=== PATIENT | female | born 1975 | race Caucasian/White ===

== ENCOUNTER → 2022-09-26 10:42 | Outpatient (CLI) | payer BC, SELFPAY ==
--- NOTE | ~2022-09-26 | MM_ITS ---
EXAMINATION: MM screening kevin BI w bria HISTORY: Screening TECHNIQUE: Craniocaudal and mediolateral oblique 3-D tomosynthesis images were obtained and synthetic 2-D images were generated. CAD analysis was submitted and interpreted. COMPARISON: Comparison to multiple prior studies sequentially, with oldest reviewed study dated 01/10. BREAST PARENCHYMAL COMPOSITION: Breast composed of scattered areas of fibroglandular density FINDINGS: There is a new mass in the upper outer quadrant of the right breast. The left breast is sta ble without evidence for malignancy. IMPRESSION: 1. New partially obscured mass upper outer quadrant of the right breast. 2. Additional mammographic views and possible breast ultrasound are recommended. BI-RADS Category 0: Incomplete: Needs additional imaging evaluation. Reviewed, dictated and finalized at location A. INSTALLER IMPRESSION: 1. New partially obscured mass upper outer quadrant of the right breast. 2. Additional mammographic views and possible breast ultrasound are recommended . BI-RADS Category 0: Incomplete: Needs additional imaging evaluation.
== END ==
PROVIDERS: PCP Obstetrics & Gynecology; Visit Provider Obstetrics & Gynecology
DX: Z12.31 Encounter for screening mammogram for malignant neoplasm of breast (principal); N63.11 Unspecified lump in the right breast, upper outer quadrant
CPT/HCPCS: 77063; 77067

== ENCOUNTER 2022-10-19 12:24 | Outpatient (CLI) | payer BC, SELFPAY ==
--- NOTE | ~2022-10-19 | MMUS_ITS ---
EXAMINATION: MM diagnostic kevin RT w bria, US breast RT limited HISTORY: New partially obscured mass reported in upper outer quadrant of right breast on September 26, 2022 screening mammogram TECHNIQUE: Additional 3-D tomosynthesis images of the right breast were performed and synthetic 2-D i mages were generated. CAD analysis was submitted and interpreted. High resolution upper outer quadran t and lower outer quadrant right breast ultrasound was performed. COMPARISON: September 26, 2022 bilateral screening mammogram FINDINGS: MAMMOGRAPHIC FINDINGS: A partially obscured approximately 7 mm mass is noted in the posterior mid to upper outer right breas t. There is heterogeneously dense stroma of the breast which may obscure masses. ULTRASOUND: There are 4 cysts identified: 10:00 8 cm from nipple: 4.5 x 9 mm cyst 10:00 11 cm from nipple: 2.7 x 5.7 mm cyst 9:30 9 cm from nipple: 6.6 x 9.5 mm cyst 9 37 cm from nipple: 2.3 x 4.10 m cyst No suspicious mass or shadowing is detected in the subareolar area or upper outer or lower quadrants IMPRESSION: 1. Benign findings 2. Routine annual mammographic screening is recommended BI-RADS Category 2: Benign finding(s). Reviewed, dictated and finalized at location A. WASHER MACHINE IMPRESSION: 1. Benign findings 2. Routine annual mammographic screening is recommended BI-RADS Category 2: Benign finding(s).
== END 2022-10-19 12:25 | disposition home or self-care (01) ==
LOC: ANHIMG 12:27
PROVIDERS: PCP Family Medicine; Visit Provider Obstetrics & Gynecology
DX: R92.8 Other abnormal and inconclusive findings on diagnostic imaging of breast (principal); N60.11 Diffuse cystic mastopathy of right breast
CPT/HCPCS: 76642; 77061; 77065; G0279

== ENCOUNTER 2023-11-15 09:16 | Outpatient (CLI) | payer BC, SELFPAY ==
--- NOTE | ~2023-11-15 | MM_ITS ---
EXAMINATION: MM screening kevin BI w bria HISTORY: Screening TECHNIQUE: Craniocaudal and mediolateral oblique 3-D tomosynthesis images were obtained and synthetic 2-D images were generated. CAD analysis was submitted and interpreted. COMPARISON: Comparison to multiple prior studies sequentially, with oldest reviewed study dated 05/14. BREAST PARENCHYMAL COMPOSITION: Dense: The breasts are heterogeneously dense, which may obscure small masses FINDINGS: There is no evidence of suspicious mass, calcification, or architectural distortion to sugg est malignancy in either breast. There has been no suspicious interval change. IMPRESSION: 1. No mammographic evidence of malignancy. 2. Recommend routine screening mammography in one year. BI-RADS Category 1: Negative Reviewed, dictated and finalized at location A.
== END 2023-11-15 09:17 | disposition home or self-care (01) ==
LOC: ANHIMG 09:21
PROVIDERS: PCP Family Medicine; Visit Provider Obstetrics & Gynecology
DX: Z12.31 Encounter for screening mammogram for malignant neoplasm of breast (principal)
CPT/HCPCS: 77063; 77067

== ENCOUNTER 2024-11-26 09:39 | Outpatient (CLI) | payer BC, SELFPAY ==
--- NOTE | ~2024-11-26 | MM_ITS ---
EXAMINATION: MM screening kevin BI w bria HISTORY: Screening TECHNIQUE: Craniocaudal and mediolateral oblique 3-D tomosynthesis images were obtained and synthetic 2-D images were generated. CAD analysis was submitted and interpreted. COMPARISON: Comparison to multiple prior studies sequentially, with oldest reviewed study dated 06/26. BREAST PARENCHYMAL COMPOSITION: Not dense: There are scattered areas of fibroglandular density. FINDINGS: There are developing asymmetries in the upper outer quadrant of the right breast, posterior third upper central aspect of the left breast, posterior third. IMPRESSION: 1. Developing bilateral breast asymmetries. 2. Additional mammographic views and possible breast ultrasound are recommended. BI-RADS Category 0: Incomplete: Needs additional imaging evaluation. Reviewed, dictated and finalized at location A. IMPRESSION: 1. Developing bilateral breast asymmetries. 2. Additional mammographic views and possible breast ultrasound are recommended . BI-RADS Category 0: Incomplete: Needs additional imaging evaluation.
--- OUTSIDE RECORDS SUMMARY | 2024-11-26 10:07 | XMS_ITS ---
Author Organization [facility] Address [address] [place] [address] [address] [place] [address] Care Team Providers Care Apartment Leasing Specialist Name Role Phone Asim, Goran Unavailable [phone] Medications Medication SIG (Take, Route, Frequency, Duration) Notes Start Date End Date Status HYDROcodone-Acetamino phen 5-325 MG one tablet Oral every 8 hours for 30 days As needed DO NOT FILL UNTIL 11/25/24 11/19/2024 Active Encounters Encounter Location Date Provider Diagnosis [facility] [address] [facility] [address] [place] [address] 11/19/2024 Goran Dailey Plan Of Treatment Medication Medication Name Sig Start Date Stop Date Notes HYDROcodone-Acetaminophen 5-325 MG one tablet Oral every 8 hours for 30 days 11/19/2024 DO NOT FILL UNTIL 11/25/24 Next Appt Details Provider Name:Nanci house, 12/17/2024 10:00:00 AM, [id number] [place] [address], [address], [place], [address], Progress Notes * Ann STEIN LDOB:[birth year] (49 yo F)Acc No.[id number]:11/19/2024 Patient: Ann POLANCO :1975 A ge:49 Y S ex:Female Address:[address] [facility] [facility] [address], [place], [address] * Refills Refill HYDROcodone-Acetaminophen Tablet, 5-325 MG, Oral, 90, one tablet, every 8 hours, 30 days, Refills=0 * true * Date: Generated for Tanya medina/William/Raina on: 0 11/26/2024 10:07 AM CDT
--- OUTSIDE RECORDS SUMMARY | 2024-11-26 10:07 | XMS_ITS ---
Author Organization [facility] Address [address] [place] [address] [address] [place] [address] Care Team Providers Care Deck Worker Name Role Phone Asim, Goran Unavailable [phone] Medications Medication SIG (Take, Route, Frequency, Duration) Notes Start Date End Date Status HYDROcodone-Acetamino phen 5-325 MG one tablet Oral every 8 hours for 30 days As needed DO NOT FILL UNTIL 10/26/24 10/22/2024 Active Encounters Encounter Location Date Provider Diagnosis [facility] [address] [facility] [address] [place] [address] 10/22/2024 Goran Dailey Plan Of Treatment Medication Medication Name Sig Start Date Stop Date Notes HYDROcodone-Acetaminophen 5-325 MG one tablet Oral every 8 hours for 30 days 10/22/2024 DO NOT FILL UNTIL 10/26/24 Next Appt Details Provider Name:Nanci house, 12/17/2024 10:00:00 AM, [id number] [place] [address], [address], [place], [address], Progress Notes * Ann STEIN LDOB:[birth year] (49 yo F)Acc No.[id number]:10/22/2024 Patient: Ann POLANCO :1975 A ge:49 Y S ex:Female Address:[address], [place], [address] * Refills Refill HYDROcodone-Acetaminophen Tablet, 5-325 MG, Oral, 90, one tablet, every 8 hours, 30 days, Refills=0 * true * Date: Generated for Tanya medina/William/Raina on: 0 11/26/2024 10:07 AM CDT
--- OUTSIDE RECORDS SUMMARY | 2024-11-26 10:07 | XMS_ITS ---
Author Organization [facility] Address [address] [facility] [address] [place] [address] Care Team Providers Care Arbor End Mainspring Former Name Role Phone Tl LEACHNanci Unavailable Allergies No Known Allergies REASON FOR VISIT meds- dr AHN, Telemedicine visit for medication renewal, c/o low back pain, left forearm, elbow pain, stiffness. Medications Medication SIG (Take, Route, Frequency, Duration) Notes Start Date End Date Status Methocarbamol 750 MG one tablet Oral twice daily for 30 days As needed Active levETIRAcetam 1000 MG TAKE 2 TABLETS (2,000MG ) BY MOUTH TWICE A DAY Oral for 90 Days Active HYDROcodone-Acetaminoph en 5-325 MG one tablet Oral every 8 hours for 30 days As needed DO NOT FILL UNTIL 10/26/24 10/22/2024 Active Naloxone HCl 4 MG/0.1ML as directed Nasally once for 30 days 1 spray in nostril for opioid emergency. call 911. may repeat in other nostril after 2-3 minutes if needed. 11/19/2024 Active Triveen-Duo DHA Acti ve Social History Tobacco Use: Social History Observation Description Date Details (start date - stop date) Never Smoker NA - NA Tobacco Control (Standard) Question Answer Notes Tobacco use: Nonsmoker Vital Signs Height 5 ft 10 in in 11/19/2024 Weight 160 lbs 11/19/2024 BMI 22.96 kg/m2 11/19/2024 Height-cm 177.8 cm 11/19/2024 Weight-kg 72.58 kg 11/19/2024 Encounters Encounter Location Date Provider Diagnosis [facility] [address] [place] [address] [address] [place] [address] 11/19/2024 Nanci Boothe Lumbar pain M54.50 ; Malignant neoplasm of cervix uteri, unspecified C53.9 ; Acquired absence of both cervix and uterus Z90.710 ; Other terminal operations supervisor (current) drug therapy Z79.899 ; Leg length discrepancy M21.70 ; Lumbar spondylosis M47.816 and 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 Assessments Encounter Date Diagnosis (ICD Code) Assessment Notes Treatment Notes Treatment Clinical Notes Section Notes 11/19/2024 Lumbar pain (ICD-10 - M54.50) Prescription for controlled substance sent to supervising physician for renewal 11/19/2024 Malignant neoplasm of cervix uteri, unspecified (ICD-10 - C53.9) 11/19/2024 Acquired absence of both cervix and uterus (ICD-10 - Z90.710) 11/19/2024 Other fdc (current) drug therapy (ICD-10 - Z79.899) 11/19/2024 Leg length discrepancy (ICD-10 - M21.70) 11/19/2024 Lumbar spondylosis (ICD-10 - M47.816) 11/19/2024 Displacement of intervertebral disc of lumbar spine without radiculopathy (ICD-10 - M51.26) Plan Of Treatment Medication Medication Name Sig Start Date Stop Date Notes Naloxone HCl 4 MG/0.1ML as directed Nasa lly once for 30 days 11/19/2024 Treatment Notes Assessment Notes Lumbar pain Prescription for con trolled substance sent to supervising physician for renewal Next Appt Details Follow Up: 4 Weeks, Reason: Provider Name:Nanci house, 12/17/2024 10:00:00 AM, [address] [place] [address], [address], [place], [address], Progress Notes * Ann STEIN LDOB:[birth year] (49 yo F)Acc No.[id number]:11/19/2024 Patient: Ann POLANCO Appointment Provider: LIONEL Oro :1975 A ge:49 Y S ex:Female Date:11/19/2024 Address:[address], [place], [id number] Subjective: * Chief Complaints: * 1 . meds- dr AHN. 2. Telemedicine visit for medication renewal. 3. C/o low back pain, left forearm, elbow pain, stiffness.. * HPI: * Established Patient: Ann Stein gives consent to virtual telemedicine visit today and verbalizes understanding that insurance will be billed accordingly. The visit was conducted through [employer] which is HIPAA compliant. Time was spent conducting visit, renewing and discussing medications, answering questions, reviewing chart and updating medical history, reviewing current treatment options, future treatments and scheduled procedures, pertinent lab vwork, and discussing follow up. Time spent with patient: 11 minutes. patient was at work. * Pain Management:: Ann Stein has an appointment today for medication renewal. She has a history of low back pain secondary to facet arthropathy. She has a history of cervical cancer with hysterectomy in 2019. She had left elbow/tendon repair with Dr Hamlin in 2019. Her left forearm is tight but better with TPI last visit and stretching. She will schedule xray next visit and may need MRI. She rates VAS 6/10. Her pain is axial, central low back. She is currently not in physical therapy.? She has no difficulty with sleep.In the past lumbar medial branch nerve blocks have been discussed. Leg length checked and is shorst 8mm right. We discussed lift. She will have lumbar scan updated. We discuss B SIJ, possible psoas block, lift, MFR/PT, MBNB lumbar. She was renewed on hydrocodone 5/325 mg 1 to 2 tablets a day as needed. She is on Robaxin-750 milligrams as needed. She has no somnolence and does not exhibit aberrant drug behavior. She is on Keppra for epilepsy. She has liquid lorazepam to use if she has a seizure. UDS and PDMP are monitored. She will bring log blood work from PCP. PDMP checked on 11/19/24: Patients last refill 10/26/24. Discussed with patient about using Narcan as opioid overdose reversal treatment in an Emergency. Patient understood well and agreed. Naloxone rx sent 11/19/24. Yearly Controlled Substances/ Pain Agreement and Consent for Chronic Opioid Therapy is discussed and signed . The patient is counseled on the benefits and risks of long-term opioid treatment (e.g., dependence, tolerance, addiction, sedation, impaired motor skill and coordination and thus increased risks for falls and operating a motor vehicle or heavy machinery, and other adverse effects such as opioid-induced constipation), and alternative medications. I also reviewed the clinic's Opioid Treatment Policy and agreement with the patient, including provisions that address the following:o Expectation of a single prescribero Periodic urine drug screeningo Expectation of no concurrent use of medications not prescribed for the patient (eg, benzodiazepines, other opioids, THC, stimulants, alcohol)o No early refillso Periodic review of PDMP queries Date of Last Urine Drug Screen: 09/03/23, was compliant with medication use . The patient expresses an understanding of the risks associated with chronic opioid treatment and consents to treatment. UDS due next month. * ROS: G eneral/Constitutional: Denies Change in appetite, Chills, Fatigue, Fever or Lightheadedness. ENT: Denies Tinnitus or Dysphagia. Ophthalmologic: Denies Blurred vision or change in vision. Neurological: denies gait abnormality, balance difficulty, dizziness, or loss of strength Psychological: denies depressed mood or change in mood Skin: denies skin rash . * Medical History: C ervical cancer, Seizure disorder. * Surgical History: c ervical cancer/hysterectomy 2019, L elbow tendon repair Dr Hamlin 2019. * Hospitalization/Major Diagno stic Procedure: n o hospitalization since last visit . * Family History: F ather: alive 71 yrs. M other: 71 yrs, breast cancer. * Social History: T obacco Use: T obacco Control (Standard) T obacco use: N onsmoker * Established Patient: S moking D o you smoke? N o Form Scores C ESD-R PMQ-R GPCOG Date 0 04/23/2024 C ESD-R Score 0 C ESD-R Risk L ow Risk (0 - 16) P MQ-R Score 8 P MQ-R Risk L ow Risk (0 - 34) G PCOG Score 9 G PCOG Risk N o Risk (9) C ESD-R PMQ-R GPCOG Testing Interval L ow Risk (every 6 months) C ESD-R PMQ-R GPCOG Next Test Due 0 10/23/2024 S OAPP Date 0 10/22/2024 S OAPP-R Score 0 S OAPP-R Risk L ow Risk (0 -9) S OAPP-R Testing Interval L ow Risk (every 6 months) C OMM Date 0 10/22/2024 C OMM Score 0 C OMM Risk N egative (< 9) * COMM: C OMM 1 . In the past 30 days, how often have you had trouble with thinking clearly or had memory problems? 0 - Never 2 . In the past 30 days, how often do people complain that you are not completing necessary tasks? (i.e., doing things that need to be done, such as going to class, work or appointments) 0 - Never 3 . In the past 30 days, how often have you had to go to someone other than your prescribing physician to get sufficient pain relief from medications? (i.e., another doctor, the Emergency Room, friends, street sources) 0 - Never 4 . In the past 30 days, how often have you taken your medications differently from how they are prescribed? 0 - Never 5 . In the past 30 days, how often have you seriously thought about hurting yourself? 0 - Never 6 . In the past 30 days, how much of your time was spent thinking about opioid medications (having enough, taking them, dosing schedule, etc.)??0- Never 7 . In the past 30 days, how often have you been in an argument? 0 - Never 8 . In the past 30 days, how often have you had trouble controlling your anger (e.g., road rage, screaming, etc.)? 0 - Never 9 . In the past 30 days, how often have you needed to take pain medications belonging to someone else? 0 - Never 1 0. In the past 30 days, how often have you been worried about how you're handling your medications? 0 - Never 1 1. In the past 30 days, how often have others been worried about how you're handling your medications? 0 - Never 1 2. In the past 30 days, how often have you had to make an emergency phone call or show up at the clinic without an appointment? 0 - Never 1 3. In the past 30 days, how often have you gotten angry with people? 0 - Never 1 4. In the past 30 days, how often have you had to take more of your medication than prescribed? 0 - Never 1 5. In the past 30 days, how often have you borrowed pain medication from someone else? 0 - Never 1 6. In the past 30 days, how often have you used your pain medicine for symptoms other than for pain (e.g., to help you sleep, improve your mood, or relieve stress)? 0 - Never 1 7. In the past 30 days, how often have you had to visit the Emergency Room? 0 - Never * SOAPP-R: S OAPP-R 1 . How often do you have mood swings? 0 - Never 2 . How often have you felt a need for higher doses of medication to treat your pain? 0 - Never 3 . How often have you felt impatient with your doctors? 0 - Never 4 . How often have you felt that things are just too overwhelming that you can't handle them? 0 - Never 5 . How often is there tension in the home??0- Never 6 . How often have you counted pain pills to see how many are remaining? 0 - Never 7 . How often have you been concerned that people will sanitation worker cleaning equipment you for taking pain medication? 0 - Never 8 . How often do you feel bored? 0 - Never 9 . How often have you taken more pain medication than you were supposed to? 0 - Never 1 0. How often have you worried about being left alone? 0 - Never 1 1. How often have you felt a craving for medication? 0 - Never 1 2. How often have others expressed concern over your use of medication? 0 - Never 1 3. How often have any of your close friends had a problem with alcohol or drugs? 0 - Never 1 4. How often have others told you that you had a bad temper? 0 - Never 1 5. How often have you felt consumed by the need to get pain medication? 0 - Never 1 6. How often have you run out of pain medication early? 0 - Never 1 7. How often have others kept you from getting what you deserve? 0 - Never 1 8. How often, in your lifetime, have you had legal problems or been arrested? 0 - Never 1 9. How often have you attended an AA or NA meeting? 0 - Never 2 0. How often have you been in an argument that was so out of control that someone got hurt? 0 - Never 2 1. How often have you been sexually abused??0- Never 2 2. How often have others suggested that you have a drug or alcohol problem? 0 - Never 2 3. How often have you had to borrow pain medications from your family or friends? 0 - Never 2 4. How often have you been treated for an alcohol or drug problem? 0 - Never * Medications: T tico Sauceda-Alf DHA , Taking levETIRAcetam 1000 MG Tablet TAKE 2 TABLETS (2,000MG ) BY MOUTH TWICE A DAY Oral , Taking Methocarbamol 750 MG Tablet one tablet Oral twice daily As needed, Taking HYDROcodone-Acetaminophen 5-325 MG Tablet one tablet Oral every 8 hours As needed, Notes to Pharmacist: DO NOT FILL UNTIL 10/26/24 * Allergies: N .K.D.A. Objective: * Vitals: H t: 5 ft 10 in, Wt:160lbs, Pain scale:61-10, BMI:22.96Index, Ht-cm: 177.8 cm, Wt- k.58 kg, Body Surface Area: 1.89. * Physical Examination: P sarah is alert and oriented x3 in NAD. Questions are answered appropriately. No slurred speech. Respirations are non-labored. Patient sits comfortably during virtual visit today. Assessment: * Assessment: 1. L umbar pain - M54.50 (Primary) 2 . M alignant neoplasm of cervix uteri, unspecified - C53.9 3 . A cquired absence of both cervix and uterus - Z90.710? 4. O ther terminal operations supervisor (current) drug therapy - Z79.899 5 . L eg length discrepancy - M21.70 6 . L umbar spondylosis - M47.816 7 . D isplacement of intervertebral disc of lumbar spine without radiculopathy - M51.26 ? Plan: * Treatment: * Follow Up: 4 Weeks * Billing Information: * Visit Code: 93833 Office Visit, Est Pt., Level 3. * Procedure Codes: * Electronic signature of LIONEL Holt PA-C on 11/26/2024 at 10:07 AM CDT Sign off status: Pending * Appointment Provider: LIONEL Oro Date: 0 11/19/2024 Generated for Printing/Faxing/eTransmitting on: 0 11/26/2024 10:07 AM CDT History and Physical Notes * HPI (History of Present Illness) Category Sub-Category Detail Notes Category Not es *Pain Management: Ann Stein has an appointment today for medication renewal. She has a history of low back pain secondary to facet arthropathy. She has a history of cervical cancer with hysterectomy in 2019. She had left elbow/tendon repair with Dr Hamlin in 2019. Her left forearm is tight but better with TPI last visit and stretching. She will schedule xray next visit and may need MRI. She rates VAS 6/10. Her pain is axial, central low back. She is currently not in physical therapy. She has no difficulty with sleep.In the past lumbar medial branch nerve blocks have been discussed. Leg length checked and is shorst 8mm right. We discussed lift. She will have lumbar scan updated. We discuss B SIJ, possible psoas block, lift, MFR/PT, MBNB lumbar. She was renewed on hydrocodone 5/325 mg 1 to 2 tablets a day as needed. She is on Robaxin-750 milligrams as needed. She has no somnolence and does not exhibit aberrant drug behavior. She is on Keppra for epilepsy. She has liquid lorazepam to use if she has a seizure. UDS and PDMP are monitored. She will bring log blood work from PCP. PDMP checked on 11/19/24: Patients last refill 10/26/24. Discussed with patient about using Narcan as opioid overdose reversal treatment in an Emergency. Patient understood well and agreed. Naloxone rx sent 11/19/24. Yearly Controlled Substances/ Pain Agreement and Consent for Chronic Opioid Therapy is discussed and signed . The patient is counseled on the benefits and risks of long-term opioid treatment (e.g., dependence, tolerance, addiction, sedation, impaired motor skill and coordination and thus increased risks for falls and operating a motor vehicle or heavy machinery, and other adverse effects such as opioid-induced constipation), and alternative medications. I also reviewed the clinic's Opioid Treatment Policy and agreement with the patient, including provisions that address the following:o Expectation of a single prescribero Periodic urine drug screeningo Expectation of no concurrent use of medications not prescribed for the patient (eg, benzodiazepines, other opioids, THC, stimulants, alcohol)o No early refillso Periodic review of PDMP queries Date of Last Urine Drug Screen: 09/03/23, was compliant with medication use . The patient expresses an understanding of the risks associated with chronic opioid treatment and consents to treatment. UDS due next month. *Established Patient Ann Stein gives consent to virtual telemedicine visit today and verbalizes understanding that insurance will be billed accordingly. The visit was conducted through [employer] which is HIPAA compliant. Time was spent conducting visit, renewing and discussing medications, answering questions, reviewing chart and updating medical history, reviewing current treatment options, future treatments and scheduled procedures, pertinent lab vwork, and discussing follow up. Time spent with patient: 11 minutes. patient was at work. Physical Examination Category Sub-Category Detail Notes Section Note s Patient is aler t and oriented x3 in NAD. Questions are answered appropriately. No slurred speech. Respirations are non-labored. Patient sits comfortably during virtual visit today.
--- OUTSIDE RECORDS SUMMARY | 2024-11-26 10:07 | XMS_ITS | Patient Health Record ---
Author Organization 1 OF Sandra weaver [facility] Address [address] [place] [address] Care Team Providers Care Liability Claims Representative Name Role Phone Tulio Shukla Primary Care Provider [place] gertrudis Dana France Unavailable [phone] Allergies No Known Allergies Reason For Referral No Information Medications Medication SIG (Take, Route, Frequency, Duration) Notes Start Date End Date Status Keppra 250 MG 1 tablet Orally ever y 12 hrs for 30 day(s) 12/16/2023 Active Methocarbamol 750 MG Oral for 30 Days Active HYDROcodone-Acetaminophen 5-325 MG TAKE 1 TABLET BY MOUTH EVERY 12 HOURS NEEDED Oral for 30 Days Active Social History Tobacco Use: Social History Observation Description Date Details (start date - stop date) Former Smoker NA - NA Tobacco Control (Standard) Question Answer Notes Tobacco use: Former smoker How long has it been since you last smoked? 5-10 years Vital Signs Height 70 in 07/13/2024 Weight 165 lbs 07/13/2024 BMI 23.67 kg/m2 07/13/2024 Encounters Encounter Location Date Provider Diagnosis 1 OF Sandra Lazo [facility] [address] [place] [address] 12/16/2023 Dana France Ganglion cyst of foot M67.479 and Right foot pain M79.671 1 OF Sandra Lazo [facility] [address] [place] [address] 07/13/2024 Dana France Ganglion cyst of foot M67.479 and Right foot pain M79.671 Assessments Encounter Date Diagnosis (ICD Code) Assessment Notes Treatment Notes Treatment Clinical Notes Section Notes 12/16/2023 Right foot pain (ICD-10 - M79.671) 12/16/2023 Ganglion cyst of foot (ICD-10 - M67.479) Patient visit today included a review of medical history, review of systems, physical exam and discussion of exam findings, and discussion of diagnoses and treatment options. I explained that she has a ganglion cyst on the right foot. I discussed conservative options of trying an aspiration. I explained that there are no guarantees that the lesion will drain. I discussed that ganglion cysts tend to have a high recurrence rate. I discussed that these cysts are primarily benign. I discussed that surgical removal can be performed if the cyst continues to recur and is significantly painful. The patient was agreeable to an aspiration today. Antibiotic ointment and a Band-Aid were applied. She'll follow up as needed. 07/13/2024 Ganglion cyst of foot (ICD-10 - M67.479) Evaluation today included a review of medical history, review of systems, discussion of exam findings, and review of diagnoses and treatment options. I again discussed that ganglion cysts can have a high recurrence rate. I discussed the option of trying another aspiration with a injection of a small amount of corticosteroid medication. I also discussed that if it continues to recur, sometimes the cyst can be surgically removed. She is not interested in having a surgical removal of the cyst. She would like to try the aspiration with application of corticosteroid medication. I did discuss the risk of developing potential thinning of the skin along the cyst. She understands this. A compressive dressing was applied after the aspiration. She was advised to apply antibiotic ointment and Band-Aid for the next 1-2 days. She will call with any issues. 07/13/2024 Right foot pain (ICD-10 - M79.671) Plan Of Treatment No Information Insurance Providers Payer Name Payer Address Payer Phone Subscriber Number Group Number Insured Name Patient Relationship to Insured Coverage Start Date Coverage End Date [facility] [address] [place] [address] [id number] Ann Stein Self - patient is the insured Medical (General) History Medical History History ICD Code cervical cancer, seizures,epilepsy Surgical History Surgery Date(Month/Year) hysterectomy due to cervical cancer
--- OUTSIDE RECORDS SUMMARY | 2024-11-26 10:07 | XMS_ITS | Patient Health Record ---
Author Organization [facility] Address [address] [place] [address] Care Team Providers Care Tree Expert Name Role Phone Mikayla Dailey Unavailable [phone] Nanci Boothe PA-C Unavailable [phone] Goran Dailey Unavailable [phone] Allergies No Known Allergies Results Component Value Reference Range Notes CT Lumbar WO Reviewed date:07/01/2024 09:20:46 AM Interpretation: Performing Lab: Notes/Report: Original Report EXAM: CT LUMBAR SPINE W/O CONTRAST, 06/29/2024 COMPARISON: None HISTORY: Low back pain TECHNIQUE: Noncontrast CT imaging was performed of the lumbar spine with reconstructed sagittal 2-D images using the standard protocol. The radiation exposure as measured by the dose length product (DLP) is 608mGy-cm. CT dose lowering technique was utilized for this exam. FINDINGS: There is normal alignment and curvature of the lumbar spine. There is no fracture or subluxation. There is no significant lumbar disc herniation, canal, or foraminal stenosis from T12-L1 through L3-4. L4-5: There is a shallow broad-based left disc protrusion minimally flattening the ventral thecal sac. No canal stenosis seen. No foraminal narrowing. L5-S1: There is disc space narrowing seen with shallow left disc protrusion but no canal or foraminal narrowing. IMPRESSION: Minor L4-5 and L5-S1 disc protrusions. No canal or foraminal narrowing. . Read by: Telma Lazcano M.D. Reviewed and Electronically Signed by: Telma Lazcano M.D. - Original Report EXAM: CT LUMBAR SPIN E W/O CONTRAST, 06/29/2024 COMPARISON: None HISTORY: Low back pain TECHNIQUE: Noncontra st CT imaging was performed of the lumbar spine with reconstructed s agittal 2-D images using the standard protocol. The radiation exposu re as measured by the dose length product (DLP) is 608mGy-cm. CT dose l owering technique was utilized for this exam. FINDINGS: There is normal alig nment and curvature of the lumbar spine. There is no fracture or subluxation. There is no signific ant lumbar disc herniation, canal, or foraminal stenosis from T12-L1 through L3-4. L4-5: There is a sha llow broad-based left disc protrusion minimally flattening the ventr al thecal sac. No canal stenosis seen. No foraminal narrowing. L5-S1: There is disc space narrowing seen with shallow left disc protrusion but no ca nal or foraminal narrowing. IMPRESSION: Minor L4-5 and L5-S1 disc protrusions. No canal or foraminal narrowing. . Read by: Telma Lazcano M.D. Reviewed and Electro nically Signed by: Telma Lazcano M.D. Reason For Referral No Information Medications Medication [...] DO NOT FILL UNTIL 11/25/24 11/19/2024 Active Naloxone HCl 4 MG/0.1ML as directed [...] (Standard) Question Answer Notes Tobacco use: Nonsmoker Section Notes: We have evaluated the patien t using PMQ-R, CESD-R and GPCOG assessments. Based on data collected from the PMQ-R, we are evaluating the risk for abuse, misuse and diversion. Furthermore, we are screening the patient for depression using the CESD-R assessment. Lastly, we are utilizing GPCOG to ensure that the current treatment plan is not impairing cognition. Per assessments today the patient has low risk for depression, low risk for opioid misuse, abuse, and no cognitive impairment. She is low risk on all testing today. Problems Problem Type SNOMED Code ICD Code Onset Dates Problem Status W/U Status Risk Notes Problem Malignant neoplasm of cervix uteri (853097621) Malignant neoplasm of cervix uteri, unspecified (C53.9) Active confirmed Problem Long-term current use of drug therapy (535404221) Other skilled nursing (current) drug therapy (Z79.899) Active confirmed Problem Hysterectomy (335906898) Acquired absence of both cervix and uterus (Z90.710) Active confirmed Problem Lumbar spondylosis (217830556) Lumbar spondylosis (M47.816) Active confirmed Problem Lumbar pain (901848663) Lumbar pain (M54.50) Active confirmed Problem Leg length discrepancy (038362584) Leg length discrepancy (M21.70) Active confirmed Problem Displacement of lumbar intervertebral disc without myelopathy (33745145) 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) Active confirmed Vital Signs Heart Rate 75 /min 10/22/2024 106 Height-cm 177.8 cm 11/19/2024 Blood pressure diastolic 71 mm Hg 10/22/2024 106 Weight-kg 72.58 kg 11/19/2024 Height 5 ft 10 in in 11/19/2024 Blood pressure systolic 106 mm Hg 10/22/2024 106 Weight 160 lbs 11/19/2024 BMI 22.96 kg/m2 11/19/2024 Encounters Encounter Location Date Provider Diagnosis [facility] [address] [place] [address] [address] [place] [address] 12/10/2023 Nanci Marstall [facility] [address] [place] [address] [address] [place] [address] 01/21/2024 Nanci Marstall [facility] [address] [place] [address] [address] [place] [address] 02/25/[address] [facility] [address] [place] [address] [address] [place] [address] 11/19/2024 Nanci Marstall Lumbar pain M54.50 ; Malignant neoplasm of cervix uteri, unspecified C53.9 ; Acquired absence of both cervix and uterus Z90.710 ; Other skilled nursing (current) drug therapy Z79.899 ; Leg length discrepancy M21.70 ; Lumbar spondylosis M47.816 and 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 [facility] [address] [place] [address] [address] [place] [address] 03/26/2024 Nanci Marstall Lumbar pain M54.50 ; Malignant neoplasm of cervix uteri, unspecified C53.9 ; Acquired absence of both cervix and uterus Z90.710 and Other skilled nursing (current) drug therapy Z79.899 [facility] [address] [place] [address] [address] [place] [address] 04/23/2024 Nanci Marstall Lumbar pain M54.50 ; Malignant neoplasm of cervix uteri, unspecified C53.9 ; Acquired absence of both cervix and uterus Z90.710 ; Other 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 Z79.899 and Screening for substance abuse Z13.89 [facility] [address] [place] [address] [address] [place] [address] 05/21/2024 Nanci Marstall Lumbar pain M54.50 ; Malignant neoplasm of cervix uteri, unspecified C53.9 ; Acquired absence of both cervix and uterus Z90.710 and Other 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 Z79.899 [facility] [address] [place] [address] [address] [place] [address] 06/18/2024 Nanci Marstall Lumbar pain M54.50 ; Leg length discrepancy M21.70 ; Malignant neoplasm of cervix uteri, unspecified C53.9 ; Acquired absence of both cervix and uterus Z90.710 and Other 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 Z79.899 [facility] [address] [place] [address] [address] [place] [address] 07/16/2024 Goran Asim Lumbar pain M54.50 ; Malignant neoplasm of cervix uteri, unspecified C53.9 ; Acquired absence of both cervix and uterus Z90.710 ; Other skilled nursing (current) drug therapy Z79.899 ; Leg length discrepancy M21.70 ; Lumbar spine pain M54.50 ; Lumbar spondylosis M47.816 ; 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 ; Seizure disorder G40.909 and Hx of cervical cancer Z85.41 [facility] [address] [place] [address] [address] [place] [address] 08/13/2024 Nanci Marstall Lumbar pain M54.50 ; Lumbar spondylosis M47.816 ; 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 ; Leg length discrepancy M21.70 ; Malignant neoplasm of cervix uteri, unspecified C53.9 ; Acquired absence of both cervix and uterus Z90.710 and 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 Z79.899 [facility] [address] [place] [address] [address] [place] [address] 09/17/2024 Nanci Marstall Lumbar pain M54.50 ; Leg length discrepancy M21.70 ; Lumbar spondylosis M47.816 ; 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 ; Malignant neoplasm of cervix uteri, unspecified C53.9 ; Acquired absence of both cervix and uterus Z90.710 and Other 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 Z79.899 [facility] [address] [place] [address] [address] [place] [address] 10/22/2024 Nanci Marstall Lumbar pain M54.50 ; Malignant neoplasm of cervix uteri, unspecified C53.9 ; Acquired absence of both cervix and uterus Z90.710 ; Other skilled nursing (current) drug therapy Z79.899 ; Leg length discrepancy M21.70 ; Lumbar spondylosis M47.816 and 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 [facility] [address] [place] [address] 03/26/2024 Goran Asim [facility] [address] [place] [address] 03/26/2024 Goran Asim [facility] [address] [place] [address] [address] [place] [address] 04/23/2024 Goran Asim [facility] [address] [place] [address] 05/21/2024 Goran Asim [facility] [address] [facility] [address] [place] [address] 06/18/2024 Goran Asim [facility] [address] [place] [address] 07/27/2024 Goran Asim [facility] [address] [place] [address] 08/13/2024 Goran Asim [facility] [address] [place] [address] 09/17/2024 Goran Asim [facility] [address] [place] [address] [address] [place] [address] 10/22/2024 Goran Asim [facility] [address] [place] [address] 11/19/2024 Goran Asim Assessments Encounter Date Diagnosis (ICD Code) Assessment Notes Treatment Notes Treatment Clinical Notes Section Notes 03/26/2024 Malignant neoplasm of cervix uteri, unspecified (ICD-10 - C53.9) hydrocodone rx sent to supervising physician for renewal 03/26/2024 Lumbar pain (ICD-10 - M54.50) 04/23/2024 Malignant neoplasm of cervix uteri, unspecified (ICD-10 - C53.9) 04/23/2024 Lumbar pain (ICD-10 - M54.50) hydrocodone rx sent to supervising physician for renewal discuss [place], Butrans or Tylenol w/ codeine next visit cannot use tramadol with seizure history schedule lumbar xrays 05/21/2024 Lumbar pain (ICD-10 - M54.50) hydrocodone rx sent to supervising physician for renewal 06/18/2024 Lumbar pain (ICD-10 - M54.50) hydrocodone rx sent to supervising physician for renewal 06/18/2024 Leg length discrepancy (ICD-10 - M21.70) 07/16/2024 Lumbar pain (ICD-10 - M54.50) 08/13/2024 Lumbar spondylosis (ICD-10 - M47.816) 08/13/2024 Lumbar pain (ICD-10 - M54.50) Prescription for controlled substance sent to supervising physician for renewal 09/17/2024 Lumbar pain (ICD-10 - M54.50) Prescription for controlled substance sent to supervising physician for renewal 09/17/2024 Leg length discrepancy (ICD-10 - M21.70) 10/22/2024 Lumbar pain (ICD-10 - M54.50) Prescription for controlled substance sent to supervising physician for renewal 11/19/2024 Lumbar pain (ICD-10 - M54.50) Prescription for controlled substance sent to supervising physician for renewal 09/17/2024 Lumbar spondylosis (ICD-10 - M47.816) 11/19/2024 Malignant neoplasm of cervix uteri, unspecified (ICD-10 - C53.9) 10/22/2024 Malignant neoplasm of cervix uteri, unspecified (ICD-10 - C53.9) 08/13/2024 Displacement of intervertebral disc of lumbar spine without radiculopathy (ICD-10 - M51.26) 07/16/2024 Malignant neoplasm of cervix uteri, unspecified (ICD-10 - C53.9) 06/18/2024 Malignant neoplasm of cervix uteri, unspecified (ICD-10 - C53.9) 05/21/2024 Malignant neoplasm of cervix uteri, unspecified (ICD-10 - C53.9) 03/26/2024 Acquired absence of both cervix and uterus (ICD-10 - Z90.710) 04/23/2024 Acquired absence of both cervix and uterus (ICD-10 - Z90.710) 04/23/2024 Other skilled nursing (current) drug therapy (ICD-10 - Z79.899) 03/26/2024 Other 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 (ICD-10 - Z79.899) 08/13/2024 Leg length discrepancy (ICD-10 - M21.70) 05/21/2024 Acquired absence of both cervix and uterus (ICD-10 - Z90.710) 06/18/2024 Acquired absence of both cervix and uterus (ICD-10 - Z90.710) 07/16/2024 Acquired absence of both cervix and uterus (ICD-10 - Z90.710) 09/17/2024 Displacement of intervertebral disc of lumbar spine without radiculopathy (ICD-10 - M51.26) 10/22/2024 Acquired absence of both cervix and uterus (ICD-10 - Z90.710) 11/19/2024 Acquired absence of both cervix and uterus (ICD-10 - Z90.710) 11/19/2024 Other 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 (ICD-10 - Z79.899) 10/22/2024 Other 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 (ICD-10 - Z79.899) 08/13/2024 Malignant neoplasm of cervix uteri, unspecified (ICD-10 - C53.9) 09/17/2024 Malignant neoplasm of cervix uteri, unspecified (ICD-10 - C53.9) 04/23/2024 Screening for substance abuse (ICD-10 - Z13.89) 05/21/2024 Other skilled nursing (current) drug therapy (ICD-10 - Z79.899) 06/18/2024 Other 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 (ICD-10 - Z79.899) 07/16/2024 Other 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 (ICD-10 - Z79.899) 08/13/2024 Acquired absence of both cervix and uterus (ICD-10 - Z90.710) 09/17/2024 Acquired absence of both cervix and uterus (ICD-10 - Z90.710) 07/16/2024 Leg length discrepancy (ICD-10 - M21.70) 10/22/2024 Leg length discrepancy (ICD-10 - M21.70) 11/19/2024 Leg length discrepancy (ICD-10 - M21.70) 11/19/2024 Lumbar spondylosis (ICD-10 - M47.816) 10/22/2024 Lumbar spondylosis (ICD-10 - M47.816) 07/16/2024 Lumbar spine pain (ICD-10 - M54.50) 09/17/2024 Other 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 (ICD-10 - Z79.899) 08/13/2024 Other 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 (ICD-10 - Z79.899) 07/16/2024 Lumbar spondylosis (ICD-10 - M47.816) 10/22/2024 Displacement of intervertebral disc of lumbar spine without radiculopathy (ICD-10 - M51.26) 11/19/2024 Displacement of intervertebral disc of lumbar spine without radiculopathy (ICD-10 - M51.26) 07/16/2024 Displacement of intervertebral disc of lumbar spine without radiculopathy (ICD-10 - M51.26) 07/16/2024 Seizure disorder (ICD-10 - G40.909) 07/16/2024 Hx of cervical cancer (ICD-10 - Z85.41) 04/23/2024 Other Learning About How to Have a Healthy Back material was published 05/21/2024 Other Learning About How to Have a Healthy Back material was published 06/18/2024 Other Body Mass Index : Care Instructions material was published, High Blood Pressure: Care Instructions material was published 07/16/2024 Other Body Mass Index: Care Instructions material was published Patient will be refilled on her medication of the hydrocodone 5/325 1 every 8 hours as needed as needed and Robaxin-750 milligrams twice daily as needed as needed. 09/17/2024 Other Learning About How to Have a Healthy Back material was published 10/22/2024 Other Learning About How to Have a Healthy Back material was published Plan Of Treatment Pending Test Test Name Order Date Leg Length 06/18/2024 Next Appt Details Provider Name:Nanci house, 12/17/2024 10:00:00 AM, [address] [place] [address], [address], [address], Insurance Providers Payer Name Payer Address Payer Phone Subscriber Number Group Number Insured Name Patient Relationship to Insured Coverage Start Date Coverage End Date [facility] [address] [place] [address] [id number] Ann Stein Self - patient is the insured 1 Medical (General) History Medical History History ICD Code cervical cancer seizure disorder Surgical History Surgery Date(Month/Year) cervical cancer/hysterectomy 2019 L elbow tendon repair Dr Hamlin 2019 Hospitalization History Reason Date(Month/Year) no hospitalization since last visit
--- OUTSIDE RECORDS SUMMARY | 2024-11-26 10:07 | XMS_ITS | Clinical Summary ---
Author Organization [facility] Address [address] [place] [address] Care Team Providers Care Traffic Signal Repairer Name Role Phone Jose Hernandez MD Primary Care Provider [phone] Allergies No known active allergies Medications hydrocodone-acet aminophen 5-325 MG tablet Take 1 tablet by mouth every 6 (six) hours as needed for Pain. Active methocarbamol 500 MG tablet Take 750 mg by mouth 4 (four) times daily. Active levETIRAcetam 1000 MG tablet Take 1,000 mg by mouth 2 (two) times daily. 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 Gender Identity Not on file Sexual Orientation Not on file Last Filed Vital Signs Vital Sign Reading Time Taken Comments Blood Pressure 101/76 11/21/2019 6:36 PM CDT Pulse 88 11/21/2019 6:36 PM CDT Temperature 36.6 C (97.9 F) 11/21/2019 6:36 PM CDT Respiratory Rate 20 11/21/2019 6:36 PM CDT Oxygen Saturation 95% 11/21/2019 6:36 PM CDT Inhaled Oxygen Concentration - - Weight 83.9 kg (185 lb) 11/21/2019 6:36 PM CDT Height 177.8 cm (5' 10 ) 11/21/2019 6:36 PM CDT Body Mass Index 26.54 11/21/2019 6:36 PM CDT Plan of Treatment Health Maintenance Due Date Last Done Comments Cervical Cancer Screening Pa p Smear (Age 30 to 64) Every 3 Years 1975 Colorectal Cancer Screening Colonoscopy (10 Years) 1975 Annual Physical 1978 Hepatitis C 1993 DTaP, Tdap and Td Vaccines ( 1 - Tdap) 1994 Hepatitis B Vaccines (1 of 3 - 19+ 3-dose series) 1994 Cervical Cancer Screening Pa p with HPV Testing (Age 30 to 64) Every 5 Years 2005 Cervical Cancer Screening with HPV 2005 Mammogram Screening 2015 COVID-19 Vaccine (2023-2 5 season) 2024 Meningococcal B Vaccine Aged Out No l onger eligible based on patient's age to complete this topic Meningococcal Vaccine Aged Out No anup reynaldo eligible based on patient's age to complete this topic Pneumococcal Vaccine: Pediat rics (0 to 5 Years) and At-Risk Patients (6 to 64 Years) Aged Out No longer eligible b ased on patient's age to complete this topic RSV Immunizations Under 20 Months Aged Out No longer eligible based on patient's age to complete this topic Care Teams Traffic Signal Repairer Relationship Specialty Start Date End Date Jose Hernandez MD [address] [place] [address] PCP - General [facility]IC[facility] 11/21/19
--- OUTSIDE RECORDS SUMMARY | 2024-11-26 10:08 | XMS_ITS | Continuity of Care Document ---
Author Organization [facility] Address [address] [place] [address] Phone Care Team Providers Care Business Department Chair Name Role Phone Rishabh Poon MD Unavailable Unavailable Advance Directives Directive Yes / No Effective Date File Name No Information Encounters Encounter Description Practice Location Reason(s) For Visit Diagnoses Date Provider Providers Copied on Encounter [facility], [address] [place], [id number], [place] tel:[phone] [facility] No Information Cleve Keating. [address] [place], [place], [id number], [place]. tel:[phone] Family History Family Member Type Diagnosis Age At Onset No Information Payers Payer name Insurance type Covered alliance party ID Authoriza tion(s) No Information Social History Type Description Quantity Date Captured Comments Sex Female Smoking Status No Information Chief Complaint And Reason For Visit No Information Plan Of Treatment Date Type Action Status No Information History Of Present Illness Encounter Date Complaint History Of Prese nt Illness No Information Instructions Date Instruction Additional Infor mation No Information Assessments Type Assessment Date No Information
--- OUTSIDE RECORDS SUMMARY | 2024-11-26 10:08 | XMS_ITS ---
Author Organization 1 OF Sandra weaver [facility] Address [address] [place] [address] Care Team Providers Care Adult Crossing Guard Name Role Phone Tulio Shukla Primary Care Provider Dana Mclean Unavailable [phone] Allergies No Known Allergies REASON FOR VISIT Ganglion Cyst on Rt foot Medications Medication SIG (Take, Route, Frequency, Duration) Notes Start Date End Date Status Methocarbamol 750 MG Oral for 30 Days Active HYDROcodone-Acetaminophen 5-325 MG TAKE 1 TABLET BY MOUTH EVERY 12 HOURS NEEDED Oral for 30 Days Active Keppra 250 MG 1 tablet Orally ever y 12 hrs for 30 day(s) 12/16/2023 Active Social History Tobacco Use: Social History Observation Description Date Details (start date - stop date) Former Smoker NA - NA Tobacco Control (Standard) Question Answer Notes Tobacco use: Former smoker How long has it been since you last smoked? 5-10 years Vital Signs Height 70 in 12/16/2023 Weight 168 lbs 12/16/2023 BMI 24.1 kg/m2 12/16/2023 Encounters Encounter Location Date Provider Diagnosis [facility] OF [facility] [address] [place] [address] 12/16/2023 Dana France Ganglion cyst of foot M67.479 and Right foot pain M79.671 Assessments Encounter Date Diagnosis (ICD Code) Assessment Notes Treatment Notes Treatment Clinical Notes Section Notes 12/16/2023 Ganglion cyst of foot (ICD-10 - [...] were applied. She'll follow up as needed. 12/16/2023 Right foot pain (ICD-10 - M79.671) Plan Of Treatment Treatment Notes Assessment Notes Ganglion cyst of foot Patient visit toda y included a review of medical history, review [...] were applied. She'll follow up as needed. Next Appt Details Follow Up: prn, Reason: Procedure Notes * Category Sub-Category Detail Notes INJECTIONS / ASPIRATION: Cyst aspiration & injec tion: Right foot: The skin along the cyst was prepped with alcohol. Local anesthesia obtained with cold spray. Attempted aspiration of the cystic lesion with a 19-gauge needle. About 1 cc of clear gelatinous fluid was obtained. Antibiotic ointment and a bandage were applied. Patient was advised to monitor for signs of infection. Progress Notes * Jignesh STEINOB: [birth year] (48 yo F)Acc No.[id number]:12/16/2023 Progress Notes Patient: Ann POLANCO Provider: Mariana France DPM :1975 A ge:48 Y S ex:Female Date:12/16/2023 [facility]:[address] [place] [address] Pcp:Tulio Shukla Subjective: * Chief Complaints: * G anglion Cyst on Rt foot * HPI: Venita Charles assisting with visit:: HPI/Rooming: Venita patterson. Briana miller reason for visit:: Pain level: R ight foot:, 09/04. New Patient Evaluation: [age] year old female, referred by Dr Shukla, PTO with chief complaint of a ganglion cyst on the right foot of 2 months duration with sudden onset. She reports that she noticed it pop up one day. She states it is aggravated by prolonged standing/walking.Pt rates the pain as . She states it was not causing pain previously, but it is starting to. Pt reports the only history of a cyst is to the LT armpit when she was 12. Pt admits to a history of trauma to the region around the cyst where she had broken a bone in the foot previously.. * ROS: G ENERAL: NAUSEA, FEVER OR CHILLS d enies, d enies. U NEXPLAINED LOSS OR GAIN OF WEIGHT d enies. U NEXPLAINED FATIGUE OR LACK OF ENERGY d enies. R ECENT FALL d enies. P ERIPHERAL VASCULAR: FATIGUE IN CALF MUSCLE WHILE WALKING d enies. P AIN, SWELLING OR FEELING OF TIGHTNESS IN LEG d enies. F REQUENT OR CHRONIC SWELLING OF LEGS d enies. T OES TURN BLUE, WHITE, PAINFUL WITH COLD TEMPERATURE d enies. N EUROLOGICAL: DIZZINESS, LIGHT HEADED OR FAINTING d enies. W EAKNESS OR PARALYSIS d enies. D IFFICULTY WITH BALANCE d enies. P ERIPHERAL NEUROLOGICAL: BURNING, TINGLING, STINGING SENSATION OF FEET d enies. N UMBNESS OF FOOT / FEET d enies. W EAKNESS OF FOOT / FEET d enies. G ASTROINTESTINAL: ABDOMINAL PAIN d enies. B LOODY STOOL d enies. F REQUENT HEARTBURN d enies. F REQUENT NAUSEA OR VOMITING d enies. S KIN: EXCESSIVE SWEATING OF FEET / HANDS d enies. C HRONIC OR RECURRENT SKIN RASH d enies. N ONHEALING SKIN LESIONS d enies. T ENDENCY TO FORM THICK SCARS (KELOIDS) d enies. M USCULOSKELETAL: LOW BACK PAIN admits. H IP PAIN d enies. K NEE PAIN d enies. S WELLING / STIFFNESS JOINTS OF HANDS / FEET d enies. E NDOCRINE: DELAYED HEALING OF WOUNDS d enies. I NTOLERANCE TO HEAT OR COLD d enies. E XCESSIVE THIRST d enies. F REQUENT URINATION d enies. ? H EMATOLOGY/ONCOLOGY: ANEMIA d enies. B LEED or BRUISE EASILY d enies.?ANTI-COAGULANT USE d enies. * Medical History: * Surgical History: h ysterectomy due to cervical cancer * Hospitalization/Major Diagno stic Procedure: * Family History: Cancer(breast, lung). * Social History: T obacco Use: T obacco Control (Standard) T obacco use: F ormer smoker H ow long has it been since you last smoked??5-10 years D rugs/Alcohol: A lcohol use: Denies current alcohol use. Recreational drugs: Denies All. M iscellaneous: E xercise: Active. 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 * Medications: T akingMethocarbamol 750 MG Tablet Oral Keppra 250 MG Tablet 1 tablet Orally every 12 hrs HYDROcodone-Acetaminophen 5-325 MG Tablet TAKE 1 TABLET BY MOUTH EVERY 12 HOURS NEEDED Oral Taking Methocarbamol 750 MG Tablet Oral Taking Keppra 250 MG Tablet 1 tablet Orally every 12 hrs Taking HYDROcodone-Acetaminophen 5-325 MG Tablet TAKE 1 TABLET BY MOUTH EVERY 12 HOURS NEEDED Oral * Allergies: N .K.D.A.no[Allergies Verified] Objective: * Vitals: W t:168lbs, Wt-k.2 kg, Ht: 70 in, BMI:24.1Index. * Examination: G eneral Examination: Constitutional / Appearance: N o acute distress , Well nourished, Appropriate personal hygiene. Mental status: C ooperative, Oriented to person, place and time, Mood and affect: normal, Judgement and intellect: normal with appropriate response to questions. Shoes today: U gg boots. L ower Extremity VASCULAR: : Pulses: D P and PT pulses, palpable, bilateral. Temperature gradient: w arm from proximal to distal, bilateral. Pedal hair: p resent, bilateral. Capillary refill at distal toes less than 3 seconds, bilateral. L ower Extremity DERM: : Skin: w ell hydrated , no suspicious lesions, bilateral.? L ower Extremity MSK: : Gait Gait unremarkable with normal posture, propulsion and balance. Left lower extremity inspection and palpation: N o palpable masses or nodules noted.. Right lower extremity inspection and palpation: T here is a palpable soft tissue mass noted along the dorsal lateral foot. Mass measures about 1 cm x 1 cm. Mass is soft. No acute pain with palpation around the surrounding soft tissue. No pain with manual muscle strength testing against resistance to all muscle groups.. ? L ower Extremity NEURO: : General sensation appears intact, bilateral. Muscle tone within normal limits, bilateral. ? Assessment: * Assessment: 1. R ight foot pain - M79.671 2 . G anglion cyst of foot - M67.479 (Primary) Plan: * Treatment: * Procedures: I NJECTIONS / ASPIRATION:: Cyst aspiration & injection: R ight foot: The skin along the cyst was prepped with alcohol. Local anesthesia obtained with cold spray. Attempted aspiration of the cystic lesion with a 19- gauge needle. About 1 cc of clear gelatinous fluid was obtained. Antibiotic ointment and a bandage were applied. Patient was advised to monitor for signs of infection.. * Procedure Codes: 2 0612 ASPIRATE/INJ GANGLION CYST, Modifiers: RT * Follow Up: p rn * Images: * Sign off status: Completed true * Provider: Mariana France DPM Date: 0 12/16/2023 Generated for Tanya medina/William/Olgaitting on: 0 11/26/2024 10:08 AM CDT History and Physical Notes * HPI (History of Present Illness) Category Sub-Category Detail Notes Category Not es Primary reason for visit: New Patient Evaluation: 48 year old female, referred by Dr Shukla, PTO with chief complaint of a ganglion cyst on the right foot of 2 months duration with sudden onset. She reports that she noticed it pop up one day. She states it is aggravated by prolonged standing/walking. Pt rates the pain as 1 /10. She states it was not causing pain previously, but it is starting to. Pt reports the only history of a cyst is to the armpit when she was 12. Pt admits to a history of trauma to the region around the cyst where she had broken a bone in the foot previously. Pain level: Right foot:, 09/04 MA assisting with visit: HPI/Rooming: Jackie Examination Category Sub-Category Detail Notes Category Not es General Examination Mental status: Cooperative, Oriented to person, place and time, Mood and affect: normal, Judgement and intellect: normal with appropriate response to questions Shoes today: Ugg boots Constitutional / Appearance: No acute di stress , Well nourished, Appropriate personal hygiene Lower Extremity VASCULAR: Pulses: DP and PT pulse s, palpable, bilateral Temperature gradient: warm from proximal to distal, bilateral Pedal hair: present, bilateral Capillary refill at distal toes less carmelo n 3 seconds, bilateral Lower Extremity NEURO: General sensation appears intac t, bilateral Muscle tone within normal limits , bilateral Lower Extremity MSK: Left lower extremit y inspection and palpation: No palpable masses or nodules noted. Right lower extremity inspec tion and palpation: There is a palpable soft tissue mass not ed along the dorsal lateral foot. Mass measures about 1 cm x 1 cm. Mass is soft. No acute pain with palpation around the surrounding soft tissue. No pain with manual muscle strength testing against resistance to all muscle groups. Gait Gait unremarkable wi th normal posture, propulsion and balance Lower Extremity DERM: Skin: well hydrated , no suspicious lesions, bilateral
--- OUTSIDE RECORDS SUMMARY | 2024-11-26 10:08 | XMS_ITS ---
Author Organization 1 OF Sandra weaver [facility] Address [address] [facility] [address] [place] [address] Care Team Providers Care Production Helper Name Role Phone Tulio Shukla Primary Care Provider [place] gertrudis BrambilaaDana Unavailable [phone] Allergies No Known Allergies REASON FOR VISIT ganglion cyst rt foot Medications Medication SIG (Take, Route, Frequency, Duration) Notes Start Date End Date Status Keppra 250 MG 1 tablet Orally ever y 12 hrs for 30 day(s) 12/16/2023 Active Methocarbamol 750 MG Oral for 30 Days Active HYDROcodone-Acetaminophen 5-325 MG TAKE 1 TABLET BY MOUTH EVERY 12 HOURS NEEDED Oral for 30 Days Active Vital Signs Height 70 in 07/13/2024 Weight 165 lbs 07/13/2024 BMI 23.67 kg/m2 07/13/2024 Encounters Encounter Location Date Provider Diagnosis 1 OF Sandra Lazo [facility] [address] [facility] [address] [place] [address] 07/13/2024 Dana France Ganglion cyst of foot M67.479 and Right foot pain M79.671 Assessments Encounter Date Diagnosis (ICD Code) Assessment Notes Treatment Notes Treatment Clinical Notes Section Notes 07/13/2024 Ganglion cyst of foot (ICD-10 - [...] Notes Assessment Notes Ganglion cyst of foot Evaluation today i ncluded a review of medical history, review of [...] days. She will call with any issues. Next Appt Details Follow Up: prn, Reason: Procedure Notes * Category Sub-Category Detail Notes INJECTIONS / ASPIRATION: Cyst aspiration & injection: Right foot: The skin along the cyst was prepped with alcohol. Local anesthesia obtained with cold spray. Attempted aspiration of the cystic lesion with a 19-gauge needle. About 3 cc of clear gelatinous fluid was obtained via the syringe and with manual compression. An injection of 0.2 cc of dexamethasone phosphate was then injected. Antibiotic ointment and a compressive bandage were applied. Patient was advised to monitor for signs of infection. Progress Notes * Jignesh STEINOB: [birth year] (49 yo F)Acc No.[id number]:07/13/2024 Progress Notes Patient: Ann POLANCO Provider: Mariana France DPM :1975 A ge:49 Y S ex:Female Date:07/13/2024 Address:[address] [place] [address] [address], [place] Pcp:Tulio Shukla Subjective: * Chief Complaints: * G anglion cyst rt foot * HPI: Venita Charles assisting with visit:: HPI/Rooming: Gertrudis miller reason for visit:: Recurrent issue: [age] y/o female RTO c/o recurrent RT ganglion cyst. At the last visit, tx consisted of an aspiration. Today pt reports it came back i n March. She states she only has pain if she is standing too long. She is wondering if it can be drained again today. She states it does not significantly interfere with her activities.. * ROS: * MULTI-SYSTEM REVIEW:: Nausea, fever or chillls d enies. A ny change in medications since last visit? d enies. A ny changes in medical history/hospitalizations? d enies. * Medical History: * Medications: T akingMethocarbamol 750 MG Tablet Oral Keppra 250 MG Tablet 1 tablet Orally every 12 hrs HYDROcodone-Acetaminophen 5-325 MG Tablet TAKE 1 TABLET BY MOUTH EVERY 12 HOURS NEEDED Oral Medication List reviewed and reconciled with the patientTaking Methocarbamol 750 MG Tablet Oral Taking Keppra 250 MG Tablet 1 tablet Orally every 12 hrs Taking HYDROcodone-Acetaminophen 5-325 MG Tablet TAKE 1 TABLET BY MOUTH EVERY 12 HOURS NEEDED Oral Medication List reviewed and reconciled with the patient * Allergies: N .K.D.A.no[Allergies Verified] Objective: * Vitals: W t:165lbs, Wt-k.84 kg, Ht: 70 in, BMI:23.67Index. * Examination: G eneral Examination: Constitutional / Appearance: N o acute distress , Well nourished, Appropriate personal hygiene. Mental status: C ooperative, Oriented to person, place and time, Mood and affect: normal, Judgement and intellect: normal with appropriate response to questions. Shoes today: u gg boots. L ower Extremity VASCULAR: : Pulses: D P and PT pulses, palpable, right. Temperature gradient: w arm from proximal to distal, r ight. Pedal hair: p resent, r ight. Capillary refill at distal toes l ess than 3 seconds, r ight. L ower Extremity DERM: : Skin: w ell hydrated , no suspicious lesions, r ight. L ower Extremity MSK: : Gait Gait unremarkable with normal posture, propulsion and balance. Right lower extremity inspection and palpation: T here is a palpable soft tissue mass noted along the dorsal lateral foot. Mass measures about 1.5 cm x 1 cm. Mass is soft. Mild discomfort with palpation of the mass. N o pain with manual muscle strength testing against resistance to all muscle groups.. L ower Extremity NEURO: : General sensation appears i ntact, r ight. Muscle tone w ithin normal limits, r ight. Assessment: * Assessment: 1. G anglion cyst of foot - M67.479 (Primary) 2 . R ight foot pain - M79.671 Plan: * Treatment: * Procedures: I NJECTIONS / ASPIRATION:: Cyst aspiration & injection: R ight foot: The skin along the cyst was prepped with alcohol. Local anesthesia obtained with cold spray. Attempted aspiration of the cystic lesion with a 19- gauge needle. About 3 cc of clear gelatinous fluid was obtained via the syringe and with manual compression. An injection of 0.2 cc of dexamethasone phosphate was then injected. Antibiotic ointment and a compressive bandage were applied. Patient was advised to monitor for signs of infection.. * Procedure Codes: 2 0612 ASPIRATE/INJ GANGLION CYST, Modifiers: RT * Follow Up: p rn * Images: * ESSOR OF RELIGION Sign off status: Completed true * Provider: Mariana France DPM Date: 09/12/2023 Generated for Tanya medina/William/Olgaitting on: 0 11/26/2024 10:07 AM CDT History and Physical Notes * HPI (History of Present Illness) Category Sub-Category Detail Notes Category Not es Primary reason for visit: Recurrent issue: 49 y/o female RTO c/o recurr ent RT ganglion cyst. At the last visit, tx consisted of an aspiration. Today pt reports it came back in March. She states she only has pain if she is standing too long. She is wondering if it can be drained again today. She states it does not significantly interfere with her activities. MA assisting with visit: HPI/Rooming: Vida Examination Category Sub-Category Detail Notes Category Not es General Examination Mental status: Cooperative, Oriented to person, place and time, Mood and affect: normal, Judgement and intellect: normal with appropriate response to questions Shoes today: ugg boots Constitutional / Appearance: No acute di stress , Well nourished, Appropriate personal hygiene Lower Extremity VASCULAR: Pulses: DP and PT pulse s, palpable, right Temperature gradient: warm from proximal to distal, right Pedal hair: present, right Capillary refill at distal toes less carmelo n 3 seconds, right Lower Extremity NEURO: General sensation appears intac t, right Muscle tone within normal limits , right Lower Extremity MSK: Right lower extremi ty inspection and palpation: There is a palpable soft tissue mass noted along the dorsal lateral foot. Mass measures about 1.5 cm x 1 cm. Mass is soft. Mild discomfort with palpation of the mass. No pain with manual muscle strength testing against resistance to all muscle groups. Gait Gait unremarkable wi th normal posture, propulsion and balance Lower Extremity DERM: Skin: well hydrated , no suspicious lesions, right
--- OUTSIDE RECORDS SUMMARY | 2024-11-26 10:08 | XMS_ITS | Referral Summary ---
Author Organization [facility] Address [address] [place] [address] Care Team Providers Care Cvt Tech Name Role Phone Tulio Shukla MD Primary Care Provider [phone] Encounters Date Type Department Care Team Description 11/17/2024 10:15 AM CDT Office Visit [facility] Primary Care at [address] [address] Tulio Shukla MD 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); JAYE III (cervical intraepithelial neoplasia grade III) with severe dysplasia; Lumbar herniated disc; BMI 28.0-28.9,adult; Subacute cough 11/09/2024 1:49 PM CDT - 11/09/2024 11:59 PM CDT Hospital Encounter [address] [address] Lipid screening Discharge Disposition: Discharge to home or self care 11/09/2024 2:00 PM CDT Lab [facility] Outpatient Lab at [address] [address] Class 1 obesity due to excess calories with body mass index (BMI) of 32.0 to 32.9 in adult (Primary Dx) from Last 3 Months Allergies No known active allergies Medications calcium citrate (CALCITRATE) 950 mg (200 mg elemental) tablet Take 2 tablets (1,900 mg total) by mouth 2 (two) times a day Active cholecalciferol (VITAMIN D-3) 5,000 unit tablet Take 1 tablet (5,000 Units total) by mouth daily Active multivitamin capsule Take 1 capsule by mouth daily Active methocarbamoL (ROBAXIN) 750 mg tablet Take 1 tablet (750 mg total) by mouth nightly Active HYDROcodone-aceta minophen (NORCO) 5-325 mg per tablet TAKE 1 TABLET BY MOUTH EVERY 12 HOURS NEEDED. DO NOT FILL UNTIL 12/12/2022 3 Active ibuprofen (ADVIL,MOTRIN) 800 mg tablet Take 1 tablet (800 mg total) by mouth every 8 (eight) hours as needed for pain (pain) 90 tablet 1 3 Active levETIRAcetam (KEPPRA) 1,000 mg tabletIndications :Generalized idiopathic epilepsy, intractable, without status epilepticus (HCC) TAKE 2 TABLETS (2,000MG ) BY MOUTH TWICE A DAY 360 tablet 3 4 Active LORazepam IntensoL 2 mg/mL concentrated solution TAKE 1 ML(2 MG) BY MOUTH EVERY 6 HOURS NEEDED FOR ANXIETY 30 mL 4 4 Active amoxicillin (AMOXIL) 875 mg tablet Take 1 tablet (875 mg total) by mouth 2 (two) times a day 20 tablet 4 11/18/19 25 Discontinu ed(Therapy completed) Active Problems Problem Noted Date Diagnosed Date BMI 28.0-28.9,adult 11/17/2024 Assessment & Plan (11/17/2024 10:53 AM CDT): As will follow respose. No change and encourage 150min/week aerobic exercise. Subacute cough 11/17/2024 Assessment & Plan (11/17/2024 10:53 AM CDT): COngratulateoin on continued smoking cessation and will follow response. Check CT scan and will montior repsonse. Encounter for screening colonoscopy 05/14/2024 Class 1 obesity due to exces s calories with body mass index (BMI) of 32.0 to 32.9 in adult 10/30/2022 JAYE III (cervical intraepith elial neoplasia grade III) with severe dysplasia 07/27/2020 Assessment & Plan (11/17/2024 10:52 AM CDT): Continues on [employer] and will monitor response. NO change and will follw oresponse. Breaet cancer screening pending. Lumbar herniated disc 07/27/2020 Assessment & Plan (11/17/2024 10:53 AM CDT): COntinues f/u with pain management and will follow repsonse. Generalized idiopathic epile psy, intractable, without status epilepticus 07/01/2017 Partial epilepsy with impairment of consciousnes s 06/24/2013 Assessment & Plan (11/17/2024 10:52 AM CDT): COntinues on Keppra and will montior response. NO breakthrough sypmtomatology on 4000mg/day. Immunizations Immunization Administration Dates Next Due Influenza LAIV (Nasal) 08/26/2021(Deferred: Aidee ent Refused) Influenza, Unspecified 11/17/2024(Deferr ed: Patient Refused),05/19/2024(Deferred: Patient Refused),11/05/2023(Deferred: Patient Refused),05/07/2023(Deferred: Patient Refused),08/26/2022(Deferred: Patient Refused),06/26/2022(Deferred: Patient Refused),10/27/2021(Deferred: Patient Refused),08/26/2020(Deferred: Patient Refused) Td, adsorbed 10/27/2021 Social History Tobacco Use Types Packs/Day Years Used Date Smoking Tobacco: Former Cigarettes Vaping Smokeless Tobacco: Never Tobacco Cessation:Counseling Given: Not Answered Alcohol Use Standard Drinks/Week Comments No 0 (1 standard drink = 0.6 oz pur e alcohol) PHQ-2 Answer Date Recorded PHQ-2 Total Score (If total score is 3 or more points, staff should administer the PHQ-9) 0 11/17/2024 Comments No Sex and Gender Information Value Date Recorded Sex Assigned at Not on file 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 Gender Identity Not on file Sexual Orientation Not on file Last Filed Vital Signs Vital Sign Reading Time Taken Comments Blood Pressure 124/74 11/17/2024 10:27 AM CDT Pulse 78 11/17/2024 10:27 AM CDT Temperature 36.8 C (98.2 F) 11/17/2024 10:27 AM CDT Respiratory Rate 14 12/01/2023 12:27 PM CDT Oxygen Saturation 98% 11/17/2024 10:27 AM CDT Inhaled Oxygen Concentration - - Weight 90.4 kg (199 lb 3.2 oz) 11/17/2024 10:27 AM CDT Height 177.8 cm (5' 10 ) 11/17/2024 10:27 AM CDT Body Mass Index 28.58 11/17/2024 10:27 AM CDT Plan of Treatment Upcoming Encounters Date Type Department Care Team (Late st Contact Info) Description 05/14/2025 8:30 AM CDT Hospital Encounter [address] [address] Minda Dennis MD [address] [place] [address] [place] [address] 05/14/2025 8:30 AM CDT - 05/14/2025 9:00 AM CDT Surgery [address] [address] Minda Dennis MD [address] [place] [address] [place] [id number] COLONOSCOPY Scheduled Procedures Name Priority Associated Diagnoses Date/Ti me COLONOSCOPY Encounter for screening colonoscopy 05/14/2025 8:30 AM CDT Procedures Procedure Name Priority Date/Time Associated Diagnosis Comments EGFR Routine 11/09/2024 1:49 PM CDT Lipid screening DIFFERENTIAL AUTO Routine 11/09/2024 1:4 9 PM CDT Lipid screening LIPID PANEL Routine 11/09/2024 1:49 PM CDT Lipid screening CBC WITH AUTO DIFFERENTIAL Routine 11/09/2024 1:49 PM CDT Lipid screening COMPREHENSIVE METABOLIC PANEL Routine 11/09/2024 1:49 PM CDT Lipid screening HM MAMMOGRAPHY Routine 11/15/2023 from Last 3 Months or Most Recently Relevant to Health Maintenance Results * eGFR (11/09/2024 1:49 PM CDT) eGFR 79 >=60 mL/min/1. 73 m2 Comment: Interpretive Data Reference Interval Normal >/= 90 mL/min/1.73m2 Mildly decreased* 60 - 89 mL/min/1.73m2 Mildly to moderately decreased 45 - 59 mL/min/1.73m2 Moderately to severely decreased 30 - 44 mL/min/1.73m2 Severely decreased 15 - 29 mL/min/1.73m2 Kidney Failure < 15 mL/min/1.73m2 *Relative to young adult level Estimated glomerular filtration rate is determined by the 2020 CKD-EPI equation recommended by the National Kidney Foundation (A Unifying Approach to GFR Estimation: Recommendations of the NKF-ASK Task Force on Reassessing the Inclusion of Race in Diagnosing Kidney Disease, JASN 2020). The CKD-EPI equation should not be used for patients with unstable renal function and has not been validated in children and those over 70. Current interpretive data was last reviewed 2021. Blood 11/09/2024 1:49 PM CDT 11/09/2024 9:53 PM CDT us Tulio Shukla MD LAB BLOOD ORDERABLES Alicia minaya Result [facility] [address] [address] Department [place] [address] * Differential, auto (11/09/2024 1:49 PM CDT) Neutrophil abs 2.6 1.5 - 6.5 K/cumm Imm gran abs 0.0 0.0 - 0.1 K/cumm [facility] Lymphocyte abs 1.9 0.8 - 3.3 K/cumm [facility] Monocyte abs 0.3 0.2 - 0.8 K/cumm [facility] Eosinophil abs 0.1 0.0 - 0.5 K/cumm [facility] Basophil abs 0.0 0.0 - 0.1 K/cumm [facility] Neutrophil pct 52.4 % [facility] Comment: Interpretive Data Percent cell count reference ranges are not reported, since discordance with absolute values may lead to misinterpretation of CBC data. Current Interpretive Data was last revised on 2017. Imm gran pct 0.2 % [facility] Comment: Interpretive Data Percent cell count reference ranges are not reported, since discordance with absolute values may lead to misinterpretation of CBC data. Current Interpretive Data was last revised on 2017. Lymphocyte pct 37.9 % [facility] Comment: Interpretive Data Percent cell count reference ranges are not reported, since discordance with absolute values may lead to misinterpretation of CBC data. Current Interpretive Data was last revised on 2017. Monocyte pct 6.7 % [facility] Comment: Interpretive Data Percent cell count reference ranges are not reported, since discordance with absolute values may lead to misinterpretation of CBC data. Current Interpretive Data was last revised on 2017. Eosinophil pct 2.6 % [facility] Comment: Interpretive Data Percent cell count reference ranges are not reported, since discordance with absolute values may lead to misinterpretation of CBC data. Current Interpretive Data was last revised on 2017. Basophil pct 0.2 % [facility] Comment: Interpretive Data Percent cell count reference ranges are not reported, since discordance with absolute values may lead to misinterpretation of CBC data. Current Interpretive Data was last revised on 2017. Blood 11/09/2024 1:49 PM CDT 11/09/2024 9:49 PM CDT Tulio Shukla MD LAB BLOOD ORDERABLES Alicia l Result [facility] [id number] [address] Department [place] [address] * (ABNORMAL) CBC with auto differential (11/09/2024 1:49 PM CDT) WBC 4.9 3.8 - 9.9 K/cumm Hgb 12.8 11.9 - 15.5 g/dL [facility] Hct 40.4 35.6 - 45.5 % [facility] Plt 206 150 - 400 K/cumm [facility] MPV 10.1 9.1 - 12.3 fL [facility] RBC 4.52 3.90 - 5.20 M/cumm [facility] MCV 89.4 81.3 - 96.4 fL [facility] MCH 28.3 27.1 - 33.3 pg [facility] MCHC 31.7(L) 32.3 - 35.7 g/dL [facility] RDW CV 13.1 11.1 - 14.9 % [facility] RDW SD 42.6 35.7 - 48.1 fL [facility] NRBC abs 0.00 0.00 - 0.01 K/cumm [facility] Blood 11/09/2024 1:49 PM CDT 11/09/2024 9:49 PM CDT us Tulio Shukal MD LAB BLOOD ORDERABLES Alicia l Result [facility] [address] [address] Department [place] [address] * (ABNORMAL) Lipid panel (11/09/2024 1:49 PM CDT) Cholesterol 222(H) 30 - 199 mg/dL Comment: Interpretive Data Ages < or = 19 years Acceptable: <170 mg/dL Borderline high: 170-199 mg/dL High: >or= 200 mg/dL Ages > or = 20 years Desirable: <200 mg/dL Borderline high: 200-239 mg/dL High: >or= 240 mg/dL Literature References: 1. Expert Panel on Integrated Guidelines for Cardiovascular Health and Risk Reduction in Children and Adolescents. Pediatrics 2011;128:S213 2. NCEP Expert Panel. Circulation 2004;110:227 Current Interpretive Data was last revised on 2018. Triglycerides 203(H) <=149 mg/dL [facility] Comment: Interpretive Data Ages < or = 9 years Acceptable: <75 mg/dL Borderline high: 75-99 mg/dL High: >or= 100 mg/dL Ages 10 to 20 years Acceptable: <90 mg/dL Borderline high: 90-129 mg/dL High: >or= 130 mg/dL Ages > or = 20 years Desirable: <150 mg/dL Borderline high: 150-199 mg/dL High: 200-499 mg/dL Very high: >or= 499 mg/dL Literature References: 1. Expert Panel on Integrated Guidelines for Cardiovascular Health and Risk Reduction in Children and Adolescents. Pediatrics 2011;128:S213 2. NCEP Expert Panel. Circulation 2004;110:227 Current Interpretive Data was last revised on 2018. HDL 50 >=40 mg/dL [facility] Comment: Interpretive Data Ages < or = 19 years Acceptable: >45 mg/dL Borderline low: 40-45 mg/dL Low: <40 mg/dL Ages > or = 20 years Desirable: >or= 60 mg/dL Low: <40 mg/dL Literature References: 1. Expert Panel on Integrated Guidelines for Cardiovascular Health and Risk Reduction in Children and Adolescents. Pediatrics 2011;128:S213 2. NCEP Expert Panel. Circulation 2004;110:227 Current Interpretive Data was last revised on 2018. LDL, calculated 136(H) <=129 mg/dL [facility] Comment: Interpretive Data Ages < or = 19 years Acceptable: <110 mg/dL Borderline high: 110-129 mg/dL High: >or= 130 mg/dL Ages > or = 20 years Optimal: <100 mg/dL Near optimal: 100-129 mg/dL Borderline high: 130-159 mg/dL High: >160 mg/dL Calculated using the Leodan LDL-C estimating equation. This equation was implemented on 2024. Prior to this date LDL-C was estimated using the Friedewald equation. Literature References: 1. Expert Panel on Integrated Guidelines for Cardiovascular Health and Risk Reduction in Children and Adolescents. Pediatrics 2011;128:S213 2. NCEP Expert Panel. Circulation 2004;110:227 3. Leodan Nathan et al. JULIENNE Cardiol. 2020 December 24;5(5):540-548. doi: 10.1001/[email or web address] Current Interpretive Data was last revised on 2024. Non-HDL Cholesterol 172 mg/dL [facility] Comment: Interpretive Data Ages < or = 19 years Acceptable: <120 mg/dL Borderline high: 120-144 mg/dL High: >145 mg/dL Ages > or = 20 years When triglycerides are >200 mg/dL, Non-HDL cholesterol is a secondary target of therapy with treatment goals that are 30 mg/dL greater than the LDL cholesterol target. Literature References: 1. Expert Panel on Integrated Guidelines for Cardiovascular Health and Risk Reduction in Children and Adolescents. Pediatrics 2011;128:S213 2. NCEP Expert Panel. Circulation 2004;110:227 Current Interpretive Data was last revised on 2018. Chol/HDL ratio 4 [facility] Blood 11/09/2024 1:49 PM CDT 11/09/2024 9:49 PM CDT us Tulio Shukla MD LAB BLOOD ORDERABLES Alicia l Result [facility] [address] [address] Department [place] [address] * Comprehensive metabolic panel (11/09/2024 1:49 PM CDT) Sodium 138 135 - 145 mmol/L Potassium, pl 4.4 3.3 - 4.9 mmol/L [facility] Chloride 104 97 - 110 mmol/L [facility] CO2 23 22 - 32 mmol/L [facility] Anion gap 11 2 - 15 mmol/L [facility] BUN 13 6 - 25 mg/dL [facility] Creatinine 0.89 0.60 - 1.10 mg/dL [facility] Glucose 92 70 - 199 mg/dL [facility] Comment: Interpretive Data Fasting glucose >/= 126 mg/dl is diagnostic for diabetes. Fasting is defined as no caloric intake for at least 8 hours. Fasting glucose between 100 mg/dl to 125 mg/dl is diagnostic of prediabetes. In a patient with classic symptoms of hyperglycemia or hyperglycemic crisis, a random glucose >/= 200 mg/dl is diagnostic for diabetes. In the absence of unequivocal hyperglycemia, results should be confirmed by repeat testing. The classification and Diagnosis of Diabetes Diabetes Care 2022; 46: S19-S40. Current interpretive data was last revised 2022. Calcium 9.3 8.5 - 10.3 mg/dL [facility] Bilirubin, total 0.2 0.1 - 1.2 mg/dL [facility] Protein, pl 6.9 6.5 - 8.5 g/dL [facility] Albumin 4.3 3.5 - 5.0 g/dL [facility] Alk phos 48 40 - 130 Units/L [facility] ALT 13 7 - 45 Units/L [facility] AST 28 10 - 45 Units/L [facility] Blood 11/09/2024 1:49 PM CDT 11/09/2024 9:49 PM CDT Tulio Shukla MD LAB BLOOD ORDERABLES Alicia minaya Result [facility] [address] [address] Department [place] [address] * HM MAMMOGRAPHY (11/15/2023) Mammography Normal Historical Provider HEALTH MAINTENANCE Final Result from Last 3 Months or Most Recently Relevant to Health Maintenance Insurance MEDICARE [facility] MEDICARE [employer] [facility] MEDICARE [place] [place] Care Teams Cvt Tech Relationship Specialty Start Date End Date [place] [address] PCP - General Family Medicine 10/27/21
--- OUTSIDE RECORDS SUMMARY | 2024-11-26 10:08 | XMS_ITS | Clinical Summary ---
Author Organization [facility] Address [address] [place] [address] Care Team Providers Care Manager Research And Development Name Role Phone Tulio Shukla MD Primary Care Provider +1 [phone] Source Comments [facility],non-owned Affiliates and Associated Physician Practices is amultiple site organization consisting of ambulatory clinics and hospital sitesin [place], [place], [place] and [place]. This disclosure is being madepursuant to the Care Everywhere program and may not contain all information available regarding this patient. Last updated 18.[employer] [facility] Allergies No known active allergies Medications * Be aware that medications may not be up to date on this document. Alwaysverify current medications with the patient. Medication Sig Dispensed Refills Start Date End Date Status levETIRAcetam (KEPPRA) 1000 MG tablet TAKE 1 AND A 1/2 TABLETS PO BID 3 07/26/2017 Active LORAZEPAM INTENSOL 2 MG/ML oral solution TK 1 ML PO D PRN 4 09/04/2017 Active methocarbamol (ROBAXIN) 750 MG tablet Take 1 (one) tablet by mouth 2 times daily 03/26/2020 Active fluconazole (Diflucan) 150 MG tabletIndications:Yea st infection Take 1 (one) tablet by mouth once daily Repeat dose in 3 to 4 days 2 tablet 05/28/2024 Active Active Problems Problem Noted Date Diagnosed Date Vaccination not carried out because of patient r efusal 09/26/2021 Family History Medical History Relation Name Comments Alcohol abuse Father Cancer - Lung Father Arthritis - Osteo Mother Cancer - Breast Mother double maste ctomy Cancer - Other Mother cervical canc er and had a hysterectomy Other - Psychiatric Mother Relation Name Status Comments Father Mother Alive Social History Tobacco Use Types Packs/Day Years Used Date Smoking Tobacco: Former Cigarettes 1 20 Smokeless Tobacco: Never Tobacco Cessation:Counseling Given: Not Answered Alcohol Use Standard Drinks/Week Comments No 0 (1 standard drink = 0.6 oz pur e alcohol) PHQ-2 Answer Date Recorded Patient Health Questionnaire-2 Score 0 11/30/2023 Sex and Gender Information Value Date Recorded Sex Assigned at Not on file Gender Identity Not on file Sexual Orientation Not on file Last Filed Vital Signs Vital Sign Reading Time Taken Comments Blood Pressure 112/72 12/04/2023 9:37 AM CDT Pulse 70 09/09/2017 9:59 AM LINEMARKER Temperature - - Respiratory Rate 16 09/09/2017 9:59 AM LINEMARKER Oxygen Saturation - - Inhaled Oxygen Concentration - - Weight 76.2 kg (168 lb) 12/04/2023 9:37 AM CDT Height 174 cm (5' 8.5 ) 12/04/2023 9:37 AM CDT Body Mass Index 25.17 12/04/2023 9:37 AM CDT Plan of Treatment Upcoming Encounters Date Type Department Care Team (Late st Contact Info) Description 12/03/2024 9:40 AM CDT Office Visit [facility] - DIRECTOR OF RELIGIOUS LIFE [address] [place] [address], [address] [address] Maninder Resendiz MD [address] [place] [id number] Health Maintenance Due Date Last Done Comments COLOGUARD (AGES 45-75) - COLON CA SCREENING 1975 COLON MONITORING 1975 COLONOSCOPY - COLON CA SCREENING 1975 CT COLONOGRAPHY - COLON CA SCREENING 1975 Colorectal Cancer Screening 1975 FIT - COLON CA SCREENING 1975 FLEX SIG - COLON CA SCREENING 1975 HIV SCREENING 1990 HEPATITIS C SCREENING 12/30/1992 DTAP/TDAP/TD VACCINES (1 - Tdap) 1994 HEPATITIS B VACCINE (1 of 3 - 19+ 3-dose series) 1994 SCREENING FOR DIABETES 04/13/2020 COVID-19 VACCINE ( - season) 2024 INFLUENZA VACCINE (#1) 2024 DEPRESSION SCREENING 08/26/2024 12/04/2023, 11/28/2022, 09/26/2021 MAMMOGRAM 11/14/2024 11/15/2023, 09/26, 10/08/2022, Additional history exists ZOSTER VACCINE (1 of 2) 2025 LIPID TESTING 10/05/2027 10/05/2022 PAP with HPV 12/03/2028 12/04/2023, 05/27, 11/28/2022, Additional history exists HIB VACCINE Aged Out No longer eligi ble based on patient's age to complete this topic HPV VACCINE Aged Out No longer eligi ble based on patient's age to complete this topic MENINGOCOCCAL (Group B) VACCINE SHARED DECISION-MAKING Aged Out No longer eligible based on patient's age to complete this topic MENINGOCOCCAL GROUPS A/C/Y/W VACCINE Aged Out No longer eligible based on patient's age to complete this topic Procedures Procedure Name Priority Date/Time Associated Diagnosis Comments PAP IG LB+HPV APTIMA Routine 12/04/2023 10:17 AM CDT Well woman exam MAMMO BILAT SCREENING Routine 11/15/2023 Well woman exam from Last 3 Months or Most Recently Relevant to Health Maintenance Results * PAP IG LB+HPV APTIMA (12/04/2023 10:17 AM CDT) Diagnosis [facility] ACCOUNT BILL Comment: NEGATIVE FOR INTRAEPITHELIAL LESION OR MALIGNANCY. FUNGAL ORGANISMS MORPHOLOGICALLY CONSISTENT WITH ELIZABETH SPECIES ARE PRESENT. Specimen Adequacy [facility] ACCOUNT BILL Comment:Satisfactory for alexandr luation. No endocervical component is identified. Clinician Provided ICD10 [facility] ACCOUNT BILL Comment: Z01.419 B37.9 Performed by [facility] ACCOUNT BILL Comment:Rahul Aviles hnologist (ASCP) Comment . [facility] ACCOUNT BILL Note [facility] ACCOUNT BILL Comment: The Pap smear is a screening test designed to aid in the detection of premalignant and malignant conditions of the uterine cervix. It is not a diagnostic procedure and should not be used as the sole means of detecting cervical cancer. Both false-positive and false-negative reports do occur. . IGLBP CPT Code Automation [facility] ACCOUNT BILL Comment: This liquid based ThinPrep(R) pap test was screened with the use of an image guided system. Human papillomavirus Aptima Negative Negative [facility] ACCOUNT BILL Comment: This nucleic acid amplification test detects fourteen high-risk HPV types (16,18,31,33,35,39,45,51,52,56,58,59,66,68) without differentiation. Pathology/Cytolog y ENTIRE VAGINA / Unknown 12/04/2023 10:17 AM CDT 12/05/2023 Narrative [facility] ACCOUNT BILL - 12/09/2023 3:08 PM CDT No. of containers..01 ThinPrep Vial Resulting Agency Comment Lab Testing performed at: [facility] [id number] Maninder Resendiz MD LAB - PATHOLOGY/CYT OLOGY ORDERABLES [facility] ACCOUNT BILL [address] [place] [address] * MAMMO BILAT SCREENING (11/15/2023) Anatomical Region Laterality Modality Breast Bilateral Mammography 11/15/2023 Maninder Resendiz MD MAMMO ORDERABLES from Last 3 Months or Most Recently Relevant to Health Maintenance Care Teams Manager Research And Development Relationship Specialty Start Date End Date Tul[id number] [id number] PCP - General Internal Medicine 11/27/21
--- OUTSIDE RECORDS SUMMARY | 2024-11-26 10:08 | XMS_ITS | Clinical Summary ---
Author Organization [facility] Address [address] [place] [address] Care Team Providers Care Carpet Inspector Name Role Phone Tulio Shukla MD Primary Care Provider [phone] Allergies No known active allergies Medications calcium [...] 2 (two) times a day 20 tablet 11/18/19 Discontinu ed(Therapy completed) Active Problems Problem Noted [...] Plan (11/17/2024 10:52 AM CDT): Continues on TABLE LEVER OPERATOR and will monitor response. NO change and [...] montior response. NO breakthrough sypmtomatology on 4000mg/day. Encounters Date Type Department Care Team Description 11/17/2024 10:15 AM CDT Office Visit [facility] Primary Care at [address] [address] Tulio Shukla MD 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); JAYE III (cervical intraepithelial neoplasia grade III) with severe dysplasia; Lumbar herniated disc; BMI 28.0-28.9,adult; Subacute cough 11/09/2024 2:[address] [facility] Outpatient Lab at [address] [address] Class 1 obesity due to excess calories with body mass index (BMI) of 32.0 to 32.9 in adult (Primary Dx) 11/09/2024 1:49 PM CDT - 11/09/2024 11:59 PM CDT Hospital Encounter [address] [address] Lipid screening Discharge Disposition: Discharge to home or self care from Last 3 Months Immunizations Immunization Administration Dates Next Due Influenza LAIV (Nasal) 08/26/2021(Deferred: Aidee ent Refused) Influenza, Unspecified 11/17/2024(Deferr ed: Patient Refused),05/19/2024(Deferred: Patient Refused),11/05/2023(Deferred: Patient Refused),05/07/2023(Deferred: Patient Refused),08/26/2022(Deferred: Patient Refused),06/26/2022(Deferred: Patient Refused),10/27/2021(Deferred: Patient Refused),08/26/2020(Deferred: Patient Refused) Td, adsorbed 10/27/2021 Surgical History Surgery Date Site/Laterality Comments ARM SURGERY CYST REMOVAL TONSILLECTOMY HYSTERECTOMY Medical History Medical History Date Comments Seizure disorder (HCC) Seizure d isorder PONV (postoperative nausea and vomiting) Cervical cancer (HCC) 07/27/2020 Lumbar herniated disc 07/27/2020 Family History Medical History Relation Name Comments Breast cancer Mother Other Other No family histo ry of Thyroid disease; Endometrial cancer Neg Hx Ovarian cancer Neg Hx Thyroid cancer Neg Hx Relation Name Status Comments Father Mother Other Social History Tobacco Use Types Packs/Day Years [...] on file Legal 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 Gender Identity Not on file Sexual Orientation Not on file Obstetrics History Para Term AB IAB SAB Ectopic Multiple Livin g Live Births 0 0 0 0 0 0 0 0 0 0 0 Last Filed Vital Signs Vital Sign Reading [...] Description 05/14/2025 8:30 AM CDT Hospital Encounter [address] [address] Minda Dennis MD [address] [place] [address] DR [address] [place] [address] 05/14/2025 8:30 AM CDT - 05/14/2025 9:00 AM CDT Surgery [address] [address] Minda Dennis MD [address] [place] [address] DR [address] [place] [address] COLONOSCOPY Scheduled Procedures Name Priority Associated Diagnoses Date/Ti me COLONOSCOPY Encounter for screening colonoscopy 05/14/2025 8:30 AM CDT Health Maintenance Due Date Last Done Comments Colon Cancer Screening-Colonoscopy 1975 Hepatitis C Screening 1975 Hepatitis B Screening 1993 Regular Well Visit/Exam 18-64 1993 DTaP/Tdap/Td Vaccine (1 - Tdap) 10/28/2021 10/27/2021 Influenza Vaccine (#1) 2024 Breast Cancer Screening-Mammogram 11/14/2024 11/15/2023, 11/15/2023, 10/08/2022, Additional history exists Depression Screening 11/17/2025 11/17/2024, 05/19/2024, 11/05/2023, Additional history exists Pneumococcal vaccine <65 Aged Out No longer eligible based on [...] Inclusion of Race in Diagnosing Kidney Disease, ALTONN 2020). The CKD-EPI equation should not be used for patients with unstable renal function and has not been validated in children and those over 70. Current interpretive data was last reviewed 2021. Blood 11/09/2024 1:49 PM CDT 11/09/2024 9:53 PM CDT us Tulio Shukla MD LAB BLOOD ORDERABLES Alicia minaya Result [facility] [address] [address] Department [place] [address] * Differential, auto (11/09/2024 1:49 PM CDT) Neutrophil abs 2.6 1.5 - 6.5 K/cumm Imm gran abs 0.0 0.0 - 0.1 K/cumm [facility] Lymphocyte abs 1.9 0.8 - 3.3 K/cumm [facility] Monocyte abs 0.3 0.2 - 0.8 K/cumm [facility] Eosinophil abs 0.1 0.0 - 0.5 K/cumm [facility] Basophil abs 0.0 0.0 - 0.1 K/cumm [facility] Neutrophil pct 52.4 % [facility] Comment: Interpretive Data Percent cell count reference ranges are not reported, since discordance with absolute values may lead to misinterpretation of CBC data. Current Interpretive Data was last revised on 2017. Imm gran pct 0.2 % [facility] Comment: Interpretive Data Percent cell count reference ranges are not reported, since discordance with absolute values may lead to misinterpretation of CBC data. Current Interpretive Data was last revised on 2017. Lymphocyte pct 37.9 % [facility] Comment: Interpretive Data Percent cell count reference ranges are not reported, since discordance with absolute values may lead to misinterpretation of CBC data. Current Interpretive Data was last revised on 2017. Monocyte pct 6.7 % [facility] Comment: Interpretive Data Percent cell count reference ranges are not reported, since discordance with absolute values may lead to misinterpretation of CBC data. Current Interpretive Data was last revised on 2017. Eosinophil pct 2.6 % [facility] Comment: Interpretive Data Percent cell count reference ranges are not reported, since discordance with absolute values may lead to misinterpretation of CBC data. Current Interpretive Data was last revised on 2017. Basophil pct 0.2 % [facility] Comment: Interpretive Data Percent cell count reference ranges are not reported, since discordance with absolute values may lead to misinterpretation of CBC data. Current Interpretive Data was last revised on 2017. Blood 11/09/2024 1:49 PM CDT 11/09/2024 9:49 PM CDT Tulio Shukla MD LAB BLOOD ORDERABLES Alicia l Result [facility] [address] [address] Department [place] [address] * (ABNORMAL) CBC with auto differential (11/09/2024 1:49 PM CDT) Pathologist [facility] WBC 4.9 3.8 - 9.9 K/cumm Hgb 12.8 11.9 - 15.5 g/dL [facility] Hct 40.4 35.6 - 45.5 % [facility] Plt 206 150 - 400 K/cumm [facility] MPV 10.1 9.1 - 12.3 fL [facility] RBC 4.52 3.90 - 5.20 M/cumm [facility] MCV 89.4 81.3 - 96.4 fL [facility] MCH 28.3 27.1 - 33.3 pg [facility] MCHC 31.7(L) 32.3 - 35.7 g/dL [facility] RDW CV 13.1 11.1 - 14.9 % [facility] RDW SD 42.6 35.7 - 48.1 fL [facility] NRBC abs 0.00 0.00 - 0.01 K/cumm [facility] Blood 11/09/2024 1:49 PM CDT 11/09/2024 9:49 PM CDT Tulio Shukla MD LAB BLOOD ORDERABLES Alicia l Result [facility] [address] [facility] Department [place] [address] * (ABNORMAL) Lipid panel (11/09/2024 1:49 PM [...] revised on 2018. Triglycerides 203(H) <=149 mg/dL [facility] Comment: Interpretive Data Ages [...] 3. Leodan Nathan et al. JULIENNE Cardiol. 2019December 24;5(5):540-548. doi: [email or web address] Current Interpretive Data was [...] last revised on 2018. Chol/HDL ratio 4 [facility] Blood 11/09/2024 1:49 PM CDT 11/09/2024 9:49 PM CDT us Tulio Shukla MD LAB BLOOD ORDERABLES Alicia minaya Result [facility] [address] [address] Department [place] [address] * Comprehensive metabolic panel (11/09/2024 [...] classification and Diagnosis of Diabetes Diabetes Care 2021; 46: S19-S40. Current interpretive data was last [...] LAB BLOOD ORDERABLES Alicia l Result [facility] [address] [address] Department [place] [address] * MAMMOGRAPHY (11/15/2023) Mammography Normal Historical Provider HEALTH MAINTENANCE Final Result from Last 3 Months or Most Recently Relevant to Health Maintenance Insurance MEDICARE [employer] [place] MED[place]ARE [employer] CHOICE MEDICARE [employer] [facility] Care Teams Carpet Inspector Relationship Specialty Start Date End Date [place] [address] PCP - General Family Medicine 10/27/21
== END 2024-11-26 09:40 | disposition home or self-care (01) ==
PROVIDERS: PCP Family Medicine; Visit Provider Obstetrics & Gynecology
DX: Z12.31 Encounter for screening mammogram for malignant neoplasm of breast (principal); R92.8 Other abnormal and inconclusive findings on diagnostic imaging of breast
CPT/HCPCS: 77063; 77067

== ENCOUNTER 2024-12-07 12:26 | Outpatient (CLI) | payer BC, SELFPAY ==
--- NOTE | ~2024-12-07 | MMUS_ITS ---
EXAMINATION: MM diagnostic kevin BI w bria, US breast BI complete HISTORY: Follow-up breast asymmetries, TECHNIQUE: Additional 3-D tomosynthesis images of the breasts were performed and synthetic 2-D images were generated. CAD analysis was submitted and interpreted. High resolution bilateral complete breas t ultrasound was performed. COMPARISON: Comparison to multiple prior studies sequentially, with oldest reviewed study dated 09/06. BREAST PARENCHYMAL COMPOSITION: Dense: The breasts are heterogeneously dense, which may obscure small masses FINDINGS: MAMMOGRAPHIC FINDINGS: There are no suspicious masses, calcifications or architectural distortion in either breast to sugges t malignancy. Bilateral breast asymmetries are stable. ULTRASOUND: Complete US of all 4 quadrants of the breast/s and retroareolar region was reviewed. Right breast: There are multiple cysts of the right breast. No suspicious solid or vascular masses ar e identified to suggest malignancy. Left breast: There is an irregular hypoechoic 4 mm mass with low-level internal echoes at 5:00, 5 cm from the nipple, likely benign. There is a 4 mm cyst of the left breast at 6:00, 7 cm from the nipple . IMPRESSION: 1. Probable benign left breast mass at 5:00, 5 cm from the nipple. No evidence for malignancy in the right breast. 2. Recommend 6 month follow-up diagnostic left mammogram and Limited left breast ultrasound. BI-RADS category 3, probably benign findings. Reviewed, dictated and finalized at location B. IMPRESSION: 1. Probable benign left breast mass at 5:00, 5 cm from the nipple. No evidence for malignancy in the right breast. 2. Recommend 6 month follow-up diagnostic left mammogram and Limited left breas t ultrasound. BI-RADS category 3, probably benign findings.
--- OUTSIDE RECORDS SUMMARY | 2024-12-07 13:37 | XMS_ITS | Patient Health Record ---
Author Organization [facility] Address [address] [place] [address] Care Team Providers Care Typing Bookkeeper Name Role Phone Mikayla Dailey Unavailable [phone] Nanci Boothe PA-C Unavailable Goran Dailey Unavailable [phone] Allergies No Known Allergies Results Component Value [...] Notes Problem Malignant neoplasm of cervix uteri (262357540) Malignant neoplasm of cervix uteri, unspecified (C53.9) Active confirmed Problem Long-term current use of drug therapy (723156715) Other mcfp (current) drug therapy (Z79.899) Active confirmed Problem Hysterectomy (992839588) Acquired absence of both cervix and uterus (Z90.710) Active confirmed Problem Lumbar spondylosis (847370488) Lumbar spondylosis (M47.816) Active confirmed Problem Lumbar pain (575205595) Lumbar pain (M54.50) Active confirmed Problem Leg length discrepancy (254544700) Leg length discrepancy (M21.70) Active confirmed Problem Displacement of lumbar intervertebral disc without myelopathy (06573116) Displacement of intervertebral disc of lumbar spine [...] 11/19/2024 Encounters Encounter Location Date Provider Diagnosis [facility] [address] [place] [address] [address] [place] [address] 12/10/2023 Nanci Marstall [facility] [id number] [place] [address] [address] [place] [address] 01/21/2024 Nanci Marstall [facility] [address] [place] [address] [address] [place] [address] 02/25/2024 Mikaylajostin JerniganAsim [facility] [address] [place] [address] [address] [place] [address] 03/26/2024 Nanci Marstall Lumbar pain M54.50 ; Malignant neoplasm of cervix uteri, unspecified C53.9 ; Acquired absence of both cervix and uterus Z90.710 and Other superintendent marine oil terminal (current) drug therapy Z79.899 [facility] [address] [place] [address] [address] [place] [address] 04/23/2024 Nanci Marstall Lumbar pain M54.50 ; Malignant neoplasm of cervix uteri, unspecified C53.9 ; Acquired absence of both cervix and uterus Z90.710 ; Other superintendent marine oil terminal (current) drug therapy Z79.899 and Screening for substance abuse Z13.89 [facility] [address] [place] [address] [address] [place] [address] 05/21/2024 Nanci Marstall Lumbar pain M54.50 ; Malignant neoplasm of cervix uteri, unspecified C53.9 ; Acquired absence of both cervix and uterus Z90.710 and Other mcfp (current) drug therapy Z79.899 [facility] [address] [place] [address] [address] [place] [address] 06/18/2024 Nanci Marstall Lumbar pain M54.50 ; Leg length discrepancy M21.70 ; Malignant neoplasm of cervix uteri, unspecified C53.9 ; Acquired absence of both cervix and uterus Z90.710 and Other mcfp (current) drug therapy Z79.899 [facility] [address] [place] [address] [address] [place] [address] 07/16/2024 Goran Asim Lumbar pain M54.50 ; Malignant neoplasm of cervix uteri, unspecified C53.9 ; Acquired absence of both cervix and uterus Z90.710 ; Other mcfp (current) drug therapy Z79.899 ; Leg length discrepancy M21.70 ; Lumbar spine pain M54.50 ; Lumbar spondylosis M47.816 ; 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 ; Seizure disorder G40.909 and Hx of cervical cancer Z85.41 [facility] [address] [place] [address] 08/13/2024 Nanci Marstall Lumbar pain M54.50 ; Lumbar spondylosis M47.816 ; 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 ; Leg length discrepancy M21.70 ; Malignant neoplasm of cervix uteri, unspecified C53.9 ; Acquired absence of both cervix and uterus Z90.710 and Other mcfp (current) drug therapy Z79.899 [facility] [address] [place] [address] 09/17/2024 Nanci Marstall Lumbar pain M54.50 ; Leg length discrepancy M21.70 ; Lumbar spondylosis M47.816 ; 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 ; Malignant neoplasm of cervix uteri, unspecified C53.9 ; Acquired absence of both cervix and uterus Z90.710 and Other superintendent marine oil terminal (current) drug therapy Z79.899 [facility] [address] [place] [address] 10/22/2024 Nanci Marstall Lumbar pain M54.50 ; Malignant neoplasm of cervix uteri, unspecified C53.9 ; Acquired absence of both cervix and uterus Z90.710 ; Other mcfp (current) drug therapy Z79.899 ; Leg length discrepancy M21.70 ; Lumbar spondylosis M47.816 and 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 [facility] [address] [place] [address] [address] [place] [address] 11/19/2024 Nanci Marstall Lumbar pain M54.50 ; Malignant neoplasm of cervix uteri, unspecified C53.9 ; Acquired absence of both cervix and uterus Z90.710 ; Other superintendent marine oil terminal (current) drug therapy Z79.899 ; Leg length discrepancy M21.70 ; Lumbar spondylosis M47.816 and 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 [facility] [address] [place] [address] 03/26/2024 Goran Asim [facility] [address] [place] [address] 03/26/2024 Goran Asim [facility] [id number] [place] [address] [address] [place] [address] 04/23/2024 Goran Asim [facility] [address] [place] [address] [address] [place] [address] 05/21/2024 Goran Asim [facility] [address] [place] [address] 06/18/2024 Goran Asim [facility] [address] [place] [address] 07/27/2024 Goran Asim [facility] [address] [place] [address] [address] [place] [address] 08/13/2024 Goran Asim [facility] [address] [place] [address] 09/17/2024 Goran Asim [facility] [address] [place] [address] [address] [place] [address] 10/22/2024 Goran Asim [facility] [address] [place] [address] 11/19/2024 Goran Asim Assessments Encounter Date Diagnosis (ICD Code) Assessment Notes Treatment Notes Treatment Clinical Notes Section Notes 03/26/2024 Lumbar pain (ICD-10 - M54.50) 03/26/2024 Malignant neoplasm of cervix uteri, unspecified (ICD-10 - C53.9) hydrocodone rx sent to supervising physician for renewal 04/23/2024 Lumbar pain (ICD-10 - M54.50) hydrocodone rx sent to supervising physician for renewal discuss [place], Butrans or Tylenol w/ codeine next visit cannot use tramadol with seizure history schedule lumbar xrays 04/23/2024 Malignant neoplasm of cervix uteri, unspecified (ICD-10 - C53.9) 05/21/2024 Lumbar pain (ICD-10 - M54.50) hydrocodone rx sent to supervising physician for renewal 06/18/2024 Lumbar pain (ICD-10 - M54.50) hydrocodone rx sent to supervising physician for renewal 06/18/2024 Leg length discrepancy (ICD-10 - M21.70) 07/16/2024 Lumbar pain (ICD-10 - M54.50) 08/13/2024 Lumbar pain (ICD-10 - M54.50) Prescription for controlled substance sent to supervising physician for renewal 09/17/2024 Lumbar pain (ICD-10 - M54.50) Prescription for controlled substance sent to supervising physician for renewal 08/13/2024 Lumbar spondylosis (ICD-10 - M47.816) 09/17/2024 Leg length discrepancy (ICD-10 - M21.70) 10/22/2024 Lumbar pain (ICD-10 - M54.50) Prescription for controlled substance sent to supervising physician for renewal 11/19/2024 Lumbar pain (ICD-10 - M54.50) Prescription for controlled substance sent to supervising physician for renewal 11/19/2024 Malignant neoplasm of cervix uteri, unspecified (ICD-10 - C53.9) 10/22/2024 Malignant neoplasm of cervix uteri, unspecified (ICD-10 - C53.9) 09/17/2024 Lumbar spondylosis (ICD-10 - M47.816) 08/13/2024 Displacement of intervertebral disc of lumbar spine without radiculopathy (ICD-10 - M51.26) 07/16/2024 Malignant neoplasm of cervix uteri, unspecified (ICD-10 - C53.9) 06/18/2024 Malignant neoplasm of cervix uteri, unspecified (ICD-10 - C53.9) 05/21/2024 Malignant neoplasm of cervix uteri, unspecified (ICD-10 - C53.9) 04/23/2024 Acquired absence of both cervix and uterus (ICD-10 - Z90.710) 03/26/2024 Acquired absence of both cervix and uterus (ICD-10 - Z90.710) 03/26/2024 Other superintendent marine oil terminal (current) drug therapy (ICD-10 - Z79.899) 04/23/2024 Other mcfp (current) drug therapy (ICD-10 - Z79.899) 05/21/2024 Acquired absence of both cervix and [...] both cervix and uterus (ICD-10 - Z90.710) 08/13/2024 Leg length discrepancy (ICD-10 - M21.70) 11/19/2024 Other superintendent marine oil terminal (current) drug therapy (ICD-10 - Z79.899) 10/22/2024 Other superintendent marine oil terminal (current) drug therapy (ICD-10 - Z79.899) 07/16/2024 Other superintendent marine oil terminal (current) drug therapy (ICD-10 - Z79.899) 09/17/2024 Malignant neoplasm of cervix uteri, unspecified (ICD-10 - C53.9) 08/13/2024 Malignant neoplasm of cervix uteri, unspecified (ICD-10 - C53.9) 06/18/2024 Other mcfp (current) drug therapy (ICD-10 - Z79.899) 05/21/2024 Other mcfp (current) drug therapy (ICD-10 - Z79.899) 04/23/2024 Screening for substance abuse (ICD-10 - Z13.89) 08/13/2024 Acquired absence of both cervix and [...] spine pain (ICD-10 - M54.50) 09/17/2024 Other mcfp (current) drug therapy (ICD-10 - Z79.899) 08/13/2024 Other mcfp (current) drug therapy (ICD-10 - Z79.899) 07/16/2024 [...] Details Provider Name:Nanci house, 12/17/2024 10:00:00 AM, [id number] [place] [address], [address], [place], [address], Insurance Providers Payer Name Payer Address Payer Phone Subscriber Number Group Number Insured Name Patient Relationship to Insured Coverage Start Date Coverage End Date [facility] [address] [place] [address] [phone] [id number] Ann Stein Self - patient is the insured 1 Medical (General) History Medical History History ICD Code cervical cancer seizure disorder Surgical History Surgery Date(Month/Year) cervical cancer/hysterectomy 2019 L elbow tendon repair Dr [place]lin 2019 Hospitalization History Reason Date(Month/Year) no hospitalization since last visit
--- OUTSIDE RECORDS SUMMARY | 2024-12-07 13:37 | XMS_ITS | Encounter Summary ---
Author Organization [facility] Address [address] [place] [address] Care Team Providers Care Hospital Admitting Clerk Name Role Phone Tulio Shukla MD Primary Care Provider [phone] Encounter Details Date Type Department Care Team (Late st Contact Info) Description 11/27/2024 Results [facility] [address] [address] Ermelinda Pardo CMA Social History Tobacco Use Types Packs/Day Years Used Date Smoking Tobacco: Former Cigarettes Vaping Smokeless Tobacco: Never Alcohol Use Standard Drinks/Week Comments No 0 (1 standard drink = 0.6 oz pur e alcohol) PHQ-2 Answer Date Recorded PHQ-2 Total Score (If total score is 3 or more points, staff should administer the PHQ-9) 0 11/17/2024 Comments No Sex and Gender Information Value Date Recorded Sex Assigned at Not on file Legal Sex Female 2:03 AM 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 [address] [place] [address] Minda Dennis MD [address] [place] [address] [place] [address] 05/14/2025 8:30 AM CDT - 05/14/2025 9:00 AM CDT Surgery [facility] [address] [place] [address] Minda Dennis MD [address] [place] [address] COLONOSCOPY Scheduled Procedures Name Priority Associated Diagnoses Date/Ti me COLONOSCOPY Encounter for screening colonoscopy 05/14/2025 8:30 AM CDT documented as of this encounter Visit Diagnoses Not on filedocumented in this encounter Care Teams Hospital Admitting Clerk Relationship Specialty Start Date End Date Tulio Shukla MD [address] [place] [address] PCP - General Family Medicine 10/27/21 documented as of this encounter
--- OUTSIDE RECORDS SUMMARY | 2024-12-07 13:37 | XMS_ITS ---
Author Organization [facility] Address [address] [place] [address] [address] [place] [address] Care Team Providers Care Hand Spring Repairer Helper Name Role Phone Asim, Goran Unavailable [phone] Medications Medication SIG (Take, Route, Frequency, Duration) Notes Start Date End Date Status HYDROcodone-Acetamino phen 5-325 MG one tablet Oral every 8 hours for 30 days As needed DO NOT FILL UNTIL 10/26/24 10/22/2024 Active Encounters Encounter Location Date Provider Diagnosis [facility] [address] [facility] [address] [place] [address] 10/22/2024 Goran Dailey Plan Of Treatment Medication Medication Name Sig Start Date Stop Date Notes HYDROcodone-Acetaminophen 5-325 MG one tablet Oral every 8 hours for 30 days 10/22/2024 DO NOT FILL UNTIL 10/26/24 Next Appt Details Provider Name:Nanci house, 12/17/2024 10:00:00 AM, [id number] [place] [address], [address], [place], [address], Progress Notes * Ann STEIN LDOB:[birth year] (49 yo F)Acc No.[id number]:10/22/2024 Patient: Ann POLANCO :1975 A ge:49 Y S ex:Female Address:[address], [place], [address] * Refills Refill HYDROcodone-Acetaminophen Tablet, 5-325 MG, Oral, 90, one tablet, every 8 hours, 30 days, Refills=0 * true * Date: Generated for Tanya medina/William/Raina on: 0 12/07/2024 01:37 PM CDT
--- OUTSIDE RECORDS SUMMARY | 2024-12-07 13:38 | XMS_ITS ---
Author Organization 1 OF Sandra weaver [facility] Address [address] [place] [address] Care Team Providers Care Display Card Writer Name Role Phone Tulio Shukla Primary Care Provider Dana Mclean Unavailable [phone] Allergies No Known Allergies REASON FOR VISIT [...] 1 OF [facility] [address] [place] [address] 12/16/2023 Dana France Ganglion cyst of foot [...] * Jignesh STEINOB: [birth year] (48 yo F)Acc No.[id number]:12/16/2023 Progress Notes Patient: Ann POLANCO Provider: Mariana France DPM :1975 A ge:48 Y S ex:Female Date:12/16/2023 Address:[address] [place] [address], [facility] Pcp:Tulio Shukla Subjective: * Chief Complaints: * [...] true * Provider: Mariana France DPM Date: 12/16/2023 Generated for Tanya medina/William/Olgaitting on: 0 12/07/2024 01:38 PM CDT History and Physical Notes * HPI [...]
--- OUTSIDE RECORDS SUMMARY | 2024-12-07 13:38 | XMS_ITS ---
Author Organization [facility] Address [address] [place] [address] [address] [place] [address] Care Team Providers Care Charter Pilot Name Role Phone Asim, Goran Unavailable [phone] Medications Medication SIG (Take, Route, Frequency, Duration) Notes Start Date End Date Status HYDROcodone-Acetamino phen 5-325 MG one tablet Oral every 8 hours for 30 days As needed DO NOT FILL UNTIL 11/25/24 11/19/2024 Active Encounters Encounter Location Date Provider Diagnosis [facility] [address] [facility] [address] [place] [address] 11/19/2024 Goran Dailey Plan Of Treatment Medication Medication Name Sig Start Date Stop Date Notes HYDROcodone-Acetaminophen 5-325 MG one tablet Oral every 8 hours for 30 days 11/19/2024 DO NOT FILL UNTIL 11/25/24 Next Appt Details Provider Name:Nanci house, 12/17/2024 10:00:00 AM, [id number] [place] [address], [address], [place], [address], Progress Notes * Ann STEIN LDOB:[birth year] (49 yo F)Acc No.[id number]:11/19/2024 Patient: Ann POLANCO :1975 A ge:49 Y S ex:Female Address:[address], [place], [address] * Refills Refill HYDROcodone-Acetaminophen Tablet, 5-325 MG, Oral, 90, one tablet, every 8 hours, 30 days, Refills=0 * true * Date: Generated for Tanya medina/William/Raina on: 0 12/07/2024 01:38 PM CDT
--- OUTSIDE RECORDS SUMMARY | 2024-12-07 13:38 | XMS_ITS | Patient Health Record ---
Author Organization 1 OF Sandra weaver [facility] Address [address] [place] [address] Care Team Providers Care Manager Mobility Name Role Phone Tulio Shukla Primary Care Provider Cristinbhavana caba Dana France Unavailable [phone] Allergies No Known Allergies Reason For Referral [...] Date Provider Diagnosis 1 OF Sandra Lazo [facility] [address] [place] [address] 12/16/2023 Dana France Ganglion cyst of foot M67.479 and Right foot pain M79.671 1 OF Sandra Lazo [facility] [address] [place] [address] 07/13/2024 Dana France Ganglion cyst of foot [...] Insured Coverage Start Date Coverage End Date [facility] [address] [place] [address] [id number] Ann Stein Self - patient is the insured Medical (General) History Medical History History ICD Code cervical cancer, seizures,epilepsy Surgical History Surgery Date(Month/Year) hysterectomy due to cervical cancer
--- OUTSIDE RECORDS SUMMARY | 2024-12-07 13:38 | XMS_ITS ---
Author Organization 1 OF Sandra weaver [facility] Address [address] [facility] [address] [place] [address] Care Team Providers Care Assistant Case Manager Name Role Phone Tulio Shukla Primary Care Provider Paris gertrudis BrambilaaDana Unavailable [phone] Allergies No Known Allergies REASON FOR VISIT [...] Date Provider Diagnosis 1 OF Sandra Lazo [facility] [address] [facility] [address] [place] [address] 07/13/2024 Dana France Ganglion cyst of foot [...] * Jignesh STEINOB: [birth year] (49 yo F)Acc No.[id number]:07/13/2024 Progress Notes Patient: Ann POLANCO Provider: Mariana France DPM :1975 A ge:49 Y S ex:Female Date:07/13/2024 Address:[address] [place] [address] [address], [place] Pcp:Tulio Shukla Subjective: * Chief Complaints: * [...] Follow Up: p rn * Images: * ROOM WORKER Sign off status: Completed true * Provider: Mariana France DPM Date: 09/12/2023 Generated for Tanya medina/William/Olgaitting on: 0 12/07/2024 [...]
--- OUTSIDE RECORDS SUMMARY | 2024-12-07 13:38 | XMS_ITS ---
Author Organization [facility] Address [address] [facility] [address] [place] [address] Care Team Providers Care Credit Collections Clerk Name Role Phone Tl LEACHNanci Unavailable [phone] Allergies No Known Allergies REASON FOR VISIT [...] Encounters Encounter Location Date Provider Diagnosis [facility] [address] [place] [address] [address] [place] [address] 11/19/2024 Nanci Boothe Lumbar pain M54.50 ; Malignant neoplasm of cervix uteri, unspecified C53.9 ; Acquired absence of both cervix and uterus Z90.710 ; Other exterminator helper termite (current) drug therapy Z79.899 ; Leg length [...] Reason: Provider Name:Nanci house, 12/17/2024 10:00:00 AM, [address] [place] [address], [address], [place], [address], Progress Notes * Ann STEIN LDOB:[birth year] (49 yo F)Acc No.[id number]:11/19/2024 Patient: Ann POLANCO Appointment Provider: LIONEL Oro :1975 A ge:49 Y S ex:Female Supervising Provider:Goran Dailey MD Date:11/19/2024 Address:[address], [id number] Subjective: * Chief Complaints: * m eds- OOOTelemedicine visit for medication renewalC/o low back pain, left forearm, elbow pain, stiffness. * HPI: * Established Patient: Ann Stein gives consent to virtual telemedicine visit today and verbalizes understanding that insurance will be billed accordingly. The visit was conducted through [employer] which is HIPAA compliant. Time was spent [...] denies skin rash . * Medical History: * Surgical History: c ervical cancer/hysterectomy 2019L elbow tendon repair Dr Hamlin 2019 * Hospitalization/Major Diagno stic Procedure: n o hospitalization since last visit * Family History: F ather: alive 71 [...] have you been concerned that people will cigarette filter inspector you for taking pain medication? 0 - [...] problem? 0 - Never * Medications: T akingTriveen-Duo DHA levETIRAcetam 1000 MG Tablet TAKE 2 TABLETS (2,000MG ) BY MOUTH TWICE A DAY Oral Methocarbamol 750 MG Tablet one tablet Oral twice daily As neededHYDROcodone-Acetaminophen 5-325 MG Tablet one tablet Oral every 8 hours As needed, Notes to Pharmacist: DO NOT FILL UNTIL 10/26/24Taking Triveen-Duo DHA Taking levETIRAcetam 1000 MG Tablet TAKE 2 TABLETS (2,000MG ) BY MOUTH TWICE A DAY Oral Taking Methocarbamol 750 MG Tablet one tablet Oral twice daily As neededTaking HYDROcodone-Acetaminophen 5-325 MG Tablet one tablet Oral every 8 hours As needed, Notes to Pharmacist: DO NOT FILL UNTIL 10/26/24 * Allergies: N .K.D.A.no[Allergies Verified] Objective: * Vitals: H t: 5 ft 10 in, Wt:160lbs, Pain scale:61-10, BMI:22.96Index, Ht-cm: 177.8 cm, Wt- k.58 kg, Body Surface Area: 1.89. * Physical Examination: P atient is alert and oriented x3 in NAD. Questions are answered appropriately. No slurred speech. Respirations are non-labored. Patient sits comfortably during virtual visit today. Assessment: * Assessment: 1. L umbar pain - M54.50 (Primary) 2 . M alignant neoplasm of cervix uteri, unspecified - C53.9 3 . A cquired absence of both cervix and uterus - Z90.710? 4. O ther exterminator helper termite (current) drug therapy - Z79.899 5 . L eg length discrepancy - M21.70 6 . L umbar spondylosis - M47.816 7 . D isplacement of intervertebral disc of lumbar spine without radiculopathy - M51.26 ? Plan: * Treatment: * Procedure Codes: * Follow Up: 4 Weeks * Billing Information: * Visit Code: 21069 Office Visit, Est Pt., Level 3. * Procedure Codes: * Sign off status: Completed true * Appointment Provider: LIONEL Oro Date: 0 11/19/2024 Generated for Printing/Faxing/eTransmitting on: 0 12/07/2024 01:38 PM CDT History [...] billed accordingly. The visit was conducted through [employer] which is HIPAA compliant. Time was spent [...]
--- OUTSIDE RECORDS SUMMARY | 2024-12-07 13:38 | XMS_ITS | Continuity of Care Document ---
Author Organization [facility] Address [address] [facility] [place] [address] Phone Care Team Providers Care Mattress Finisher Name Role Phone Rishabh Poon MD Unavailable Unavailable Advance Directives Directive Yes / No Effective Date File Name No Information Encounters Encounter Description Practice Location Reason(s) For Visit Diagnoses Date Provider Providers Copied on Encounter [facility], [address] [place], [place], [id number], [place] tel:[phone] [facility] No Information Cleve Keating. [address] [place], [place], [id number], [place]. tel:[phone] Family History Family Member Type Diagnosis Age At Onset No Information Payers Payer name Insurance type Covered republican ID Authoriza tion(s) No Information Social History [...]
--- OUTSIDE RECORDS SUMMARY | 2024-12-07 13:38 | XMS_ITS | Clinical Summary ---
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
--- OUTSIDE RECORDS SUMMARY | 2024-12-07 13:39 | XMS_ITS | Referral Summary ---
Author Organization [facility] Address [address] [place] [address] Care Team Providers Care Volumetric Weigher Name Role Phone Tulio Shukla MD Primary Care Provider [phone] Encounters Date Type Department Care Team Description 12/01/2024 Telephone [facility] [address] [phone] Tulio Shukla MD Jun [address] Shukla in [place] has been cancelled 11/30/2024 Telephone [facility] [address] [phone] Tulio Shukla MD 11/30/2024 Orders Only [facility] [address] [address] Tulio Shukla MD 11/27/2024 Results Follow-Up [facility] [address] [address] Ermelinda Pardo CMA 11/27/2024 Telephone [facility] [address] [address] Tulio Shukla MD 11/17/2024 10:15 AM CDT Office Visit [facility] Primary Care at [address] [address] Tulio Shukla MD 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); JAYE III (cervical intraepithelial neoplasia grade III) with severe dysplasia; Lumbar herniated disc; BMI 28.0-28.9,adult; Subacute cough 11/09/2024 1:49 PM CDT - 11/09/2024 11:59 PM CDT Hospital Encounter [address] [address] Lipid screening Discharge Disposition: Discharge to home or self care 11/09/2024 2:00 PM CDT Lab [facility] Outpatient Lab at [address] [address] Class 1 obesity due to [...] DAY 360 tablet 3 4 Active LORazepam (LORazepam IntensoL) 2 mg/mL concentrated solution Take 1 mL (2 mg total) by mouth every 6 (six) hours as needed for anxiety 30 mL 4 5 Active LORazepam IntensoL 2 mg/mL concentrated solution TAKE 1 ML(2 MG) BY MOUTH EVERY 6 HOURS NEEDED FOR ANXIETY 30 mL 4 4 12/05/19 Discontinu ed(Reorder ) amoxicillin (AMOXIL) 875 mg tablet Take 1 [...] Plan (11/17/2024 10:52 AM CDT): Continues on ELECTRIC TRUCKER and will monitor response. 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 Gender Identity Not on file Sexual Orientation [...] Description 05/14/2025 8:30 AM CDT Hospital Encounter [facility] [address] [place] [address] Minda Dennis MD [address] [place] [address] [place] [address] 05/14/2025 8:30 AM CDT - 05/14/2025 9:00 AM CDT [facility] 1 [place] [address] Minda Dennis MD [address] [place] [address] [place] [address] COLONOSCOPY Scheduled Procedures Name Priority Associated Diagnoses Date/Ti me COLONOSCOPY Encounter for screening colonoscopy 05/14/2025 8:30 AM CDT Procedures Procedure Name Priority Date/Time Associated Diagnosis Comments SCREENING MAMMOGRAM Schedule Routine, Read Routine (OP Routine) 11/26/2024 8:50 AM CDT SCREENING MAMMOGRAM BILATERAL W MIL Schedule Routine, Read Routine (OP Routine) 11/26/2024 EGFR Routine 11/09/2024 1:49 PM CDT Lipid screening DIFFERENTIAL AUTO Routine 11/09/2024 1:4 9 PM CDT Lipid screening LIPID PANEL Routine 11/09/2024 1:49 PM CDT Lipid screening CBC WITH AUTO DIFFERENTIAL Routine 11/09/2024 1:49 PM CDT Lipid screening COMPREHENSIVE METABOLIC PANEL Routine 11/09/2024 1:49 PM CDT Lipid screening from Last 3 Months Results * Screening Mammogram (11/26/2024 8:50 AM CDT) Anatomical Region Laterality Modality Breast N/A Mammography us Historical Provider MD VALDOVINOS MAMMO PROCEDURES Alicia l Result * (ABNORMAL) Screening Mammogram Bilateral W Mil (11/26/2024) Anatomical Region Laterality Modality Breast Bilateral Mammography 11/26/2024 us Historical Provider MD VALDOVINOS MAMMO PROCEDURES Alicia l Result * eGFR (11/09/2024 1:49 PM CDT) eGFR [...] MD LAB BLOOD ORDERABLES Alicia minaya Result [facility] [address] [place] [address] * Differential, auto (11/09/2024 1:49 PM CDT) Neutrophil abs 2.6 1.5 - 6.5 K/cumm Imm gran abs 0.0 0.0 - 0.1 K/cumm [facility] Lymphocyte abs 1.9 0.8 - 3.3 K/cumm [facility] Monocyte abs 0.3 0.2 - 0.8 K/cumm [facility] Eosinophil abs 0.1 0.0 - 0.5 K/cumm [facility] Basophil abs 0.0 0.0 - 0.1 K/cumm [facility] Neutrophil pct 52.4 % [facility] Comment: Interpretive Data Percent cell count reference ranges are not reported, since discordance with absolute values may lead to misinterpretation of CBC data. Current Interpretive Data was last revised on 2017. Imm gran pct 0.2 % [facility] Comment: Interpretive Data Percent cell count reference ranges are not reported, since discordance with absolute values may lead to misinterpretation of CBC data. Current Interpretive Data was last revised on 2017. Lymphocyte pct 37.9 % [facility] Comment: Interpretive Data Percent cell count reference ranges are not reported, since discordance with absolute values may lead to misinterpretation of CBC data. Current Interpretive Data was last revised on 2017. Monocyte pct 6.7 % [facility] Comment: Interpretive Data Percent cell count reference ranges are not reported, since discordance with absolute values may lead to misinterpretation of CBC data. Current Interpretive Data was last revised on 2017. Eosinophil pct 2.6 % [facility] Comment: Interpretive Data Percent cell count reference ranges are not reported, since discordance with absolute values may lead to misinterpretation of CBC data. Current Interpretive Data was last revised on 2017. Basophil pct 0.2 % [facility] Comment: Interpretive Data Percent cell count reference ranges are not reported, since discordance with absolute values may lead to misinterpretation of CBC data. Current Interpretive Data was last revised on 2017. Blood 11/09/2024 1:49 PM CDT 11/09/2024 9:49 PM CDT Tulio Shukla MD LAB BLOOD ORDERABLES Alicia l Result [facility] [address] Department of Laboratories [place], [place] [id number] * (ABNORMAL) CBC with auto differential (11/09/2024 1:49 PM CDT) WBC 4.9 3.8 - 9.9 K/cumm Hgb 12.8 11.9 - 15.5 g/dL [facility] Hct 40.4 35.6 - 45.5 % [facility] Plt 206 150 - 400 K/cumm [facility] MPV 10.1 9.1 - 12.3 fL [facility] RBC 4.52 3.90 - 5.20 M/cumm [facility] MCV 89.4 81.3 - 96.4 fL [facility] MCH 28.3 27.1 - 33.3 pg [facility] MCHC 31.7(L) 32.3 - 35.7 g/dL [facility] RDW CV 13.1 11.1 - 14.9 % [facility] RDW SD 42.6 35.7 - 48.1 fL [facility] NRBC abs 0.00 0.00 - 0.01 K/cumm [facility] Blood 11/09/2024 1:49 PM CDT 11/09/2024 9:49 PM CDT us Tulio Shukla MD LAB BLOOD ORDERABLES Alicia minaya Result [facility] [address] [place] [address] * (ABNORMAL) Lipid panel (11/09/2024 1:49 PM [...] revised on 2018. Triglycerides 203(H) <=149 mg/dL [facility] Comment: Interpretive Data Ages < or = [...] MD LAB BLOOD ORDER[place] [address] [address] [place] [address] * Comprehensive metabolic panel (11/09/2024 1:49 PM [...] BLOOD ORDERABLES Alicia minaya Result [facility] [address] [place] [address] from Last 3 Months Insurance MEDICARE [employer] [facility] MEDICARE ANTHEM ACCESS [facility]ICARE [facility] Care Teams Volumetric Weigher Relationship Specialty Start Date End Date Tulio Shukla MD [address] [place] [address] PCP - General Family Medicine 10/27/21
--- OUTSIDE RECORDS SUMMARY | 2024-12-07 13:39 | XMS_ITS | Clinical Summary ---
Author Organization [facility] Building B Address [address] [place] [address] Care Team Providers Care Small Battery Plate Assembler Name Role Phone Tulio Shukla MD Primary Care Provider [phone] Allergies No known active allergies Medications calcium [...] times a day 20 tablet 4 11/18/19 Discontinu ed(Therapy completed) Active Problems Problem [...] Plan (11/17/2024 10:52 AM CDT): Continues on NURSE OB and will monitor response. NO change and [...] Team Description 12/01/2024 Telephone [facility] [address] [phone] Tulio Shukla MD Jun [address] Shukla in [place] has been cancelled 11/30/2024 Telephone [facility] [address] [phone] Tulio Shukla MD 11/30/2024 Orders Only [facility] [address] [phone] Tulio Shukla MD 11/27/2024 Results Follow-Up [facility] [address] [phone] Ermelinda Pardo CMA 11/27/2024 Telephone [facility] [address] [phone] Tulio Shukla MD 11/17/2024 10:15 AM CDT Office Visit [facility] Primary Care at [address] [phone] Tulio Shukla MD 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); JAYE III (cervical intraepithelial neoplasia grade III) with severe dysplasia; Lumbar herniated disc; BMI 28.0-28.9,adult; Subacute cough 11/09/2024 2:[address] 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 Gender Identity Not on file Sexual Orientation [...] Description 05/14/2025 8:30 AM CDT Hospital Encounter [address] [address] Minda Dennis MD [address] [facility] [address] [place] [address] 05/14/2025 8:30 AM CDT - 05/14/2025 9:00 AM CDT Surgery [address] [address] Minda Dennis MD [address] [facility] [address] [place] [address] COLONOSCOPY Scheduled Procedures Name Priority Associated Diagnoses Date/Ti me COLONOSCOPY Encounter for screening colonoscopy 05/14/2025 8:30 AM CDT Health Maintenance Due Date Last Done Comments Colon Cancer Screening-Colonoscopy 1975 Hepatitis C Screening 1975 Hepatitis B Screening 1993 Regular Well Visit/Exam 18-64 1993 DTaP/Tdap/Td Vaccine (1 - Tdap) 10/28/2021 10/27/2021 Influenza Vaccine (Season Ended) 2025 Depression Screening 11/17/2025 11/17/2024, 05/19/2024, 11/05/2023, Additional history exists Breast Cancer Screening-Mammogram 11/26/2025 11/26/2024, 11/26/2024, 11/15/2023, Additional history exists Pneumococcal vaccine <65 Aged [...] Region Laterality Modality Breast Bilateral Mammography 11/26/2024 Historical Provider MD VALDOVINOS MAMMO PROCEDURES Alicia [...] LAB BLOOD ORDERABLES Alicia minaya Result [facility] [address] Department [place] [address] * Differential, auto (11/09/2024 1:49 PM CDT) Neutrophil abs 2.6 1.5 - 6.5 K/cumm Imm gran abs 0.0 0.0 - 0.1 K/cumm [facility] Lymphocyte abs 1.9 0.8 - 3.3 K/cumm [facility] Monocyte abs 0.3 0.2 - 0.8 K/cumm [facility] Eosinophil abs 0.1 0.0 - 0.5 K/cumm [facility] Basophil abs 0.0 0.0 - 0.1 K/cumm [facility] Neutrophil pct 52.4 % [facility] Comment: Interpretive Data Percent cell count reference ranges are not reported, since discordance with absolute values may lead to misinterpretation of CBC data. Current Interpretive Data was last revised on 2017. Imm gran pct 0.2 % [facility] Comment: Interpretive Data Percent cell count reference ranges are not reported, since discordance with absolute values may lead to misinterpretation of CBC data. Current Interpretive Data was last revised on 2017. Lymphocyte pct 37.9 % [facility] Comment: Interpretive Data Percent cell count reference ranges are not reported, since discordance with absolute values may lead to misinterpretation of CBC data. Current Interpretive Data was last revised on 2017. Monocyte pct 6.7 % [facility] Comment: Interpretive Data Percent cell count reference ranges are not reported, since discordance with absolute values may lead to misinterpretation of CBC data. Current Interpretive Data was last revised on 2017. Eosinophil pct 2.6 % [facility] Comment: Interpretive Data Percent cell count reference ranges are not reported, since discordance with absolute values may lead to misinterpretation of CBC data. Current Interpretive Data was last revised on 2017. Basophil pct 0.2 % [facility] Comment: Interpretive Data Percent cell count reference ranges are not reported, since discordance with absolute values may lead to misinterpretation of CBC data. Current Interpretive Data was last revised on 2017. Blood 11/09/2024 1:49 PM CDT 11/09/2024 9:49 PM CDT Tulio Shukla MD LAB BLOOD ORDERABLES Alicia l Result Performing Organization Address [facility]/ZIP Co de Phone Number NATASHA GREEN [address] [place] [address] * (ABNORMAL) CBC with auto differential (11/09/2024 1:49 PM CDT) Pathologist [facility] WBC 4.9 3.8 - 9.9 K/cumm Hgb 12.8 11.9 - 15.5 g/dL [facility] Hct 40.4 35.6 - 45.5 % [facility] Plt 206 150 - 400 K/cumm [facility] MPV 10.1 9.1 - 12.3 fL [facility] RBC 4.52 3.90 - 5.20 M/cumm [facility] MCV 89.4 81.3 - 96.4 fL [facility] MCH 28.3 27.1 - 33.3 pg [facility] MCHC 31.7(L) 32.3 - 35.7 g/dL [facility] RDW CV 13.1 11.1 - 14.9 % [facility] RDW SD 42.6 35.7 - 48.1 fL [facility] NRBC abs 0.00 0.00 - 0.01 K/cumm [facility] Blood 11/09/2024 1:49 PM CDT 11/09/2024 9:49 PM CDT Tulio Shukla MD LAB BLOOD ORDERABLES Alicia l Result Performing Organization Address [facility]/ZIP Co de Phone Number NATASHA [address] [place] [address] * (ABNORMAL) Lipid panel (11/09/2024 1:49 PM [...] on 2018. Triglycerides 203(H) <=149 mg/dL NATASHA Comment: Interpretive Data Ages < or = [...] on 2024. Non-HDL Cholesterol 172 mg/dL NATASHA Comment: Interpretive Data Ages < or = [...] BLOOD ORDERABLES Alicia minaya Result NATASHA GREEN [address] Department [place] [address] * Comprehensive metabolic panel (11/09/2024 [...] classification and Diagnosis of Diabetes Diabetes Care 202; 46: S19-S40. Current interpretive data was last [...] MD LAB BLOOD ORDERABLES Alicia minaya Result [facility] [address] Department [place] [address] from Last 3 Months Insurance MEDICARE BLUE [employer] [place] [facility] [employer] [facility] MEDIC[facility] Care Teams Small Battery Plate Assembler Relationship Specialty Start Date End Date [place] [address] PCP - General Family Medicine 10/27/21
--- OUTSIDE RECORDS SUMMARY | 2024-12-07 13:39 | XMS_ITS | Clinical Summary ---
Author Organization [facility] [employer] Address [address] [place] [address] Care Team Providers Care Scientific Advisor Name Role Phone Tulio Shukla MD Primary Care Provider [phone] Source Comments [facility],non-owned Affiliates and Associated Physician Practices is amultiple site organization consisting of ambulatory clinics and hospital sitesin [place], [place], [place] and [place]. This disclosure is being madepursuant to the Care Everywhere program and may not contain all information available regarding this patient. Last updated 18.[facility] [employer] Allergies No known active allergies Medications * Be aware that medications may not be up to date on this document. Alwaysverify current medications with the patient. levETIRAcetam (KEPPRA) 1000 MG tablet TAKE 1 AND A 1/2 TABLETS PO BID 3 07/26/2017 Active LORAZEPAM INTENSOL 2 MG/ML oral solution TK 1 ML PO D PRN 4 09/04/2017 Active methocarbamol (ROBAXIN) 750 MG tablet Take 1 (one) tablet by mouth 2 times daily 03/26/2020 Active fluconazole (Diflucan) 150 MG tabletIndicatio ns:Yeast infection Take 1 (one) tablet by mouth once daily Repeat dose in 3 to 4 days 2 tablet 05/28/2024 Active Active Problems Problem Noted Date Diagnosed Date Vaccination not carried out because of patient r efusal 09/26/2021 Encounters Date Type Department Care Team Description 12/03/2024 9:40 AM CDT Office Visit [facility] - BOOKING SUPERVISOR [address] [place] [address], [address] [place] [address] Maninder Resendiz MD Well woman exam (Primary Dx) 11/26/2024 Orders Only [facility] - BOOKING SUPERVISOR [address] [place] [address], [address] [phone] Maninder Resendiz MD Abnormal mammogram ; Well woman exam from Last 3 Months Family History Medical History Relation Name Comments [...] Date Recorded Patient Health Questionnaire-2 Score 0 11/26/2024 Comments No Sex and Gender Information Value Date Recorded Sex Assigned at Not on file Legal Sex Female 10:27 AM 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 Gender Identity Not on file Sexual Orientation Not on file 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 Not on file Not on file Not on file Last Filed Vital Signs Vital Sign Reading Time Taken Comments Blood Pressure 122/80 12/03/2024 9:46 AM CDT Pulse 70 09/09/2017 9:59 AM 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 Temperature - - Respiratory Rate 16 09/09/2017 9:59 AM 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 Oxygen Saturation - - Inhaled Oxygen Concentration - - Weight 88 kg (194 lb) 12/03/2024 9:46 AM CDT Height 174 cm (5' 8.5 ) 12/04/2023 9:37 AM CDT Body Mass Index 29.07 12/04/2023 9:37 AM CDT Plan of Treatment Upcoming Encounters Date Type Department Care Team (Late st Contact Info) Description 12/09/2025 10:00 AM CDT Office Visit [facility] - BOOKING SUPERVISOR [address] [place] [address], [address] [place] [phone] Maninder Resendiz MD [address] [place] [phone] Health Maintenance Due Date Last Done [...] of 3 - 19+ 3-dose series) 1994 COVID-19 VACCINE (1 - season) 2024 ZOSTER VACCINE (1 of 2) 2025 INFLUENZA VACCINE (Season Ended) 2025 MAMMOGRAM 11/26/2025 11/26/2024, 0410/2024, 11/15/2023, Additional history exists LIPID TESTING 10/05/2027 10/05/2022 PAP with HPV 12/03/2028 12/04/2023, 05/27, 11/28/2022, Additional history exists DEPRESSION SCREENING Completed 12/03/2024, 12/04/2023, 11/28/2022, Additional history exists HIB VACCINE Aged [...] Procedure Name Priority Date/Time Associated Diagnosis Comments MAMMO BILAT SCREENING Routine 11/26/2024 Well woman exam PAP IG LB+HPV APTIMA Routine 12/04/2023 10:17 AM CDT Well woman exam from Last 3 Months or Most Recently Relevant to Health Maintenance Results * MAMMO BILAT SCREENING (11/26/2024) Anatomical Region Laterality Modality Breast Bilateral Mammography 11/26/2024 us Maninder Resendiz MD MAMMO ORDERABLES Edited Res ult - Final * PAP IG LB+HPV APTIMA (12/04/2023 10:17 [...] Resulting Agency Comment Lab Testing performed at: [facility] [id number] [place] Maninder Resendiz MD LAB - PATHOLOGY/CYTOLOGY OR DERABLES Final Result [facility] ACCOUNT BILL [address] [place] [address] from Last 3 Months or Most Recently Relevant to Health Maintenance Insurance [employer] Care Teams Scientific Advisor Relationship Specialty Start Date End Date Tulio Shukla MD [address] [place] [address] PCP - General Internal Medicine 11/27/21
== END 2024-12-07 12:27 | disposition home or self-care (01) ==
PROVIDERS: PCP Family Medicine; Visit Provider Family Medicine
DX: R92.8 Other abnormal and inconclusive findings on diagnostic imaging of breast (principal)
CPT/HCPCS: 76641; 77062; 77066; G0279

== ENCOUNTER 2025-06-14 12:19 | Outpatient (CLI) | payer BC, SELFPAY ==
--- NOTE | ~2025-06-14 | MMUS_ITS ---
EXAMINATION: MM diagnostic kevin BI w bria, US breast LT limited INDICATION: 50-year old female; BI-RADS 3, short-term follow-up probably benign left breast finding. COMPARISON: 12/07/2024 through 10/19/2022 TECHNIQUE: Digital breast tomosynthesis True lateral, CC and MLO views with spot compression views of BILATERAL breasts were obtained with computer-aided detection to assist in interpretation of the study. MAMMOGRAM FINDINGS: The breasts are heterogeneously dense, which may obscure small masses. The previously reported asymmetries in both breasts are unchanged. No new suspicious mass, calcification or architectural distortion to suggest malignancy in either breast. LEFT BREAST ULTRASOUND FINDINGS: Targeted evaluation of the area of concern was completed. 0.3 cm parallel oriented circumscribed hypoechoic mass at 5:00 location 5 cm from the nipple in the LEFT breast redemonstrated is Unchanged. IMPRESSION: Probable Benign LEFT breast finding is unchanged. No mammographic evidence of malignancy within the Right breast. RECOMMENDATION: 6 month follow-up diagnostic BILATERAL mammogram and LEFT breast ultrasound. BI-RADS 3, PROBABLY BENIGN Reviewed, dictated and finalized at location B. IMPRESSION: Probable Benign LEFT breast finding is unchanged. No mammographic evidence of malignancy within the Right breast. RECOMMENDATION: 6 month follow-up diagnostic BILATERAL mammogram and LEFT breast ultrasound. BI-RADS 3, PROBABLY BENIGN
== END 2025-06-14 12:20 | disposition home or self-care (01) ==
PROVIDERS: PCP Family Medicine; Visit Provider Family Medicine
DX: R92.8 Other abnormal and inconclusive findings on diagnostic imaging of breast (principal)
CPT/HCPCS: 76642; 77062; 77066; G0279

== ENCOUNTER 2025-07-05 12:43 | Outpatient (CLI) | payer BC, SELFPAY ==
--- NOTE | ~2025-07-05 | CT_ITS ---
EXAMINATION:CT lung screening DATE: 07/05/2025 13:01 INDICATION: Personal history of nicotine dependence. TECHNIQUE: Computed tomography (CT) of the chest was performed without intravenous contrast. Automated exposure control and iterative reconstruction technique were employed. The dose-length product (DLP) was 112.87 mGy-cm. COMPARISON: None. FINDINGS: The lungs demonstrate mild atelectasis. There is a 3 mm nodule in right upper lobe. No pleural effusion. The heart size is normal. No pericardial effusion. There is a 2.4 cm cyst in the liver. There is mild thoracic spondylosis. IMPRESSION: 1. Lung-RADS category 2: Benign appearance or behavior. Continue annual screening with noncontrast low-dose chest CT in 12 months. Reviewed, dictated and finalized at location E. CUTTER IMPRESSION: 1. Lung-RADS category 2: Benign appearance or behavior. Continue annual screeni ng with noncontrast low-dose chest CT in 12 months.
== END 2025-07-05 12:44 | disposition home or self-care (01) ==
LOC: MICIMG 12:45
PROVIDERS: PCP Family Medicine; Visit Provider Family Medicine
DX: Z12.2 Encounter for screening for malignant neoplasm of respiratory organs (principal); Z87.891 Personal history of nicotine dependence
CPT/HCPCS: 71271